=== PATIENT | female | born 1940 | race Hispanic/Latino ===

== ENCOUNTER → 2018-08-23 | Day surgery (SDC) | payer MEDICARE ==
[~2018-08-23] MED LIST: ACETAMINOP325 MG/10 PO; ANUSOL-HC30 GM RC; CILOSTAZOL100 MG PO; FENTANYL CITRATE/PF 100MCG/2 ML INJ ONE; FOLIC ACID1 MG PO; HYDROXYCHLOROQ200 MG PO; LISINOPRIL10 MG PO; METHOTREXATE2.5 MG PO; METOPROLOL SUCC50 MG PO; MIDAZOLAM HCL 2 MG/2 ML VIAL ONE; NEXIUM40 MG PO; OR PHACO EYE KIT ONE; PREOP PHACO EYE KIT ONE; ULTRAM50 MG PO; VIT B12 PO; VIT D2 PO
--- OUTSIDE RECORDS SUMMARY | 2018-08-23 08:39 | XMS REPORT | Continuity of Care Document ---
Author Author [facility] Interface Address Unknown Phone Unavailable Problems Problem Status Onset Date Classification Date Reported Comments Source ABD PAIN Active 07/23/2018 [facility] Encounter for screening mammogram for malignant neoplasm of breast 12/10/2017 03/16/2018 [facility] ROUTINE Active 11/10/2017 [facility] ACUTE CHOLECYSTITIS Active 02/07/2017 [facility] DX: SCREENING FOR BREAST CANCER Active 11/04/2016 [facility] UNK Active 06/11/2016 [facility] MASS OF RIGHT THIGH Active 11/12/2015 [facility] N63 Active 08/31/2015 [facility] Obesity<sup>5</sup> Active 11/09/2014 Problem 11/17/2015 Data migrated from [employer] on 03/27/15. [facility] Obesity<sup>6</sup> Active 11/09/2014 Problem 06/27/2016 Data migrated from [employer] on 03/27/15. [facility] Allergic contact dermatitis<sup>1, 2</sup> Resolved 07/23/2014 Problem 02/13/2017 Data migrated from [employer] on 02/16/15. [facility] Vitamin D deficiency<sup>9</sup> Active 07/06/2014 Problem 02/13/2017 Data migrated from [employer] on 02/16/15. [facility] Vitamin D deficiency<sup>6</sup> Active 07/06/2014 Problem 03/16/2018 Data migrated from [employer] on 02/16/15. [facility] Vitamin D deficiency<sup>10</sup> Active 07/06/2014 Problem 06/27/2016 Data migrated from [employer] on 02/16/15. [facility] OSTEO Active 03/27/2014 [facility] Osteopenia<sup>7</sup> Active 11/01/2013 Problem 02/13/2017 Data migrated from [employer] on 02/16/15. [facility] Osteopenia<sup>4</sup> Active 11/01/2013 Problem 03/16/2018 Data migrated from [employer] on 02/16/15. [facility] Osteopenia<sup>8</sup> Active 11/01/2013 Problem 06/27/2016 Data migrated from [employer] on 02/16/15. [facility] SCREENING MAMMOGRAM Active 10/02/2013 [facility] CKD stage 3, GFR 30-59 ml/min(<span ID="[id number]">Confirmed</span>)<sup>3</sup> Active 06/28/2013 Problem 02/13/2017 Data migrated from [employer] on 02/16/15. [facility] Osteoarthritis of knee<sup>6</sup> Active 06/28/2013 Problem 02/13/2017 Data migrated from [employer] on 02/16/15. [facility] Systemic lupus erythematosus<sup>8</sup> Active 06/28/2013 Problem 02/13/2017 Data migrated from [employer] on 02/16/15. [facility] Chronic kidney disease, stage 3<sup>1</sup> Active 06/28/2013 Problem 03/16/2018 Data migrated from [employer] on 02/16/15. [facility] Osteoarthritis of knee<sup>3</sup> Active 06/28/2013 Problem 03/16/2018 Data migrated from [employer] on 02/16/15. [facility] System[facility] lupus erythematosus<sup>5</sup> Active 06/28/2013 Problem 03/16/2018 Data migrated from [employer] on 02/16/15. [facility] CKD stage 3, GFR 30-59 ml/min<sup>3</sup> Active 06/28/2013 Problem 06/27/2016 Data migrated from [employer] on 02/16/15. [facility] Osteoarthritis of knee<sup>7</sup> Active 06/28/2013 Problem 06/27/2016 Data migrated from [employer] on 02/16/15. [facility] Systemic lupus erythematosus<sup>9</sup> Active 06/28/2013 Problem 06/27/2016 Data migrated from [employer] on 02/16/15. [facility] SCREENING Active 09/26/2012 [facility] RUQ PAIN Active 05/31/2012 [facility] ROUTINE SCREENING Active 10/15/2011 [facility] Dermatitis Active Problem 02/03/2018 [facility] Right hip pain Active Problem 02/03/2018 [facility] Suprapubic pain Active Problem 02/03/2018 [facility] Lumbago Active Problem 02/03/2018 [facility] Heel pain Active Problem 02/03/2018 [facility] Benign hypertension with chronic kidney disease, stage III Active Problem 02/13/2017 [facility] Left breast mass Resolved Problem 03/16/2018 [facility] Screening for breast cancer Active Problem 03/16/2018 [facility] Gastroesophageal reflux disease<sup>4</sup> Active Problem 02/13/2017 Data migrated from [id number] on 02/16/15. [facility] History of lupus Resolved Problem 02/13/2017 [facility] Degenerative joint disease of lumbar spine(<span ID="[id number]">Confirmed</span>) Active Problem 03/16/2018 [facility] Mass of right thigh<sup>5</sup> Resolved Problem 02/13/2017 Ruled out [facility] Osteoporosis Active Problem 03/16/2018 [facility] Screening for glaucoma Active Problem 02/13/2017 [facility] Screening for diabetic retinopathy Active Problem 03/16/2018 [facility] Screening for colon cancer Active Problem 03/16/2018 [facility] Rheumatoid arthritis with positive rheumatoid factor Active Problem 03/16/2018 [facility] Lupus Resolved Problem 02/13/2017 [facility] Type 2 diabetes with stage 3 chronic kidney disease GFR 30-59 Active Problem 02/13/2017 [facility] Type 2 diabetes mellitus with diabetic polyneuropathy Active Problem 02/13/2017 [facility] Acute cholecystitis Resolved Problem 03/16/2018 [facility] Benign hypertension with chronic kidney disease, stage III Active Problem 03/16/2018 [facility] Gastroesophageal reflux disease<sup>2</sup> Active Problem 03/16/2018 Data migrated from [email or web address] on 02/16/15. [facility] Hemorrhoids Active Problem 03/16/2018 [facility] History of cholecystectomy Active Problem 03/16/2018 [facility] Medicare annual wellness visit, subsequent Active Problem 03/16/2018 [facility] Type 2 diabetes mellitus with stage 3 chronic kidney disease Active Problem 03/16/2018 [facility] Encounter for immunization Active Problem 03/16/2018 [facility] Peripheral neuropathy Active Problem 06/27/2016 [facility] Type 2 diabetes mellitus, controlled, with renal complications Active Problem 06/27/2016 [facility] Mass of right thigh Active Problem 11/17/2015 [facility] History of colon polyps Active Problem 06/27/2016 [facility] Hypertension Active Problem 06/27/2016 [facility] SCREEN MAMMOGRAM NEC Active [facility] ABDMNAL PAIN RT UPR QUAD Active [facility] Datatype(DG1.4)- Active [facility] ENCNTR SCREEN MAMMOGRAM FOR MALIGNANT NE Active [facility] DISORDER OF BONE DENSITY AND STRUCTURE, Active [facility] OTH DISRD OF BONE DENSITY AND STRUCTURE, Active [facility] CONTUSION OF RIGHT THIGH, SEQUELA Active [facility] AGE-RELATED OSTEOPOROSIS W/O CURRENT PAT Active [facility] ACUTE CHOLECYSTITIS Active [facility] Medications Medication Details Route Status Patient Instructions Ordering Provider Order Date Source Hydrocortisone 25 MG/ML Topical Cream [Anusol HC] 1 appl, MO, BID, PRN rectal pain/itching, # 30 gm, 1 Refill(s), Pharmacy: [facility] [id number] Active 02/25/2018 [facility] Metoprolol Tartrate 50 mg oral tablet 50 mg=1 tab, PO, BID, # 180 tab, 1 Refill(s), Pharmacy: [facility] [id number] Active 02/25/2018 [facility] lisinopril 10 mg oral tablet 10 mg=1 tab, PO, Daily, # 90 tab, 2 Refill(s), Pharmacy: [facility] [id number] Active 12/30/2017 [facility] Esomeprazole 40 MG Enteric Coated Capsule 40 mg=1 cap, PO, Daily, # 90 cap, 1 Refill(s), [id number] Active 08/19/2017 [facility] Metronidazole 500 MG Oral Tablet [Flagyl] 500 mg=1 tab, PO, Q8H, X 7 day, # 21 tab, 0 Refill(s) Active 02/09/2017 [facility] Levofloxacin 500 MG Oral Tablet [Levaquin] 500 mg=1 tab, PO, Q24H, X 7 day, # 7 tab, 0 Refill(s) Active 02/09/2017 [facility] Acetaminophen 300 MG / Codeine Phosphate 30 MG Oral Tablet [Tylenol with Codeine #3] 1 tab, PO, Q6H, PRN Pain, # 20 tab, 0 Refill(s) Active 02/09/2017 [facility] D5NS + KCL 20mEq/L 1000ml (Premix) 1,000 mL 1,000 mL, Rate: 50 ml/hr, Infuse over: 20 hr, Route: IV, Dosing Weight 88.636 kg, Total Volume: 1,000, Start date: 02/08/17 19:08:00 CDT, Duration: 30 day, Stop date: 03/10/17 19:07:00 CDTNotes: PREMIX IV - Do Not Alter WASTE: F/P - Sink; E - Municipal Trash Bin No Longer Active 02/09/2017 [facility] ondansetron (ANES) Route: IV, Drug form: INJ, ONCE, Stop date: 02/08/17 14:30:00 CDT Inactive 02/08/2017 [facility] neostigmine (ANES) Route: IV, Drug form: INJ, ONCE, Stop date: 02/08/17 14:30:00 CDT Inactive 02/08/2017 [facility] glycopyrrolate (ANES) Route: IV, Drug form: INJ, ONCE, Stop date: 02/08/17 14:30:00 CDT Inactive 02/08/2017 [facility] metoprolol (ANES) Route: IV, Drug form: INJ, ONCE, Stop date: 02/08/17 14:12:00 CDT Inactive 02/08/2017 [facility] famotidine (ANES) Route: IV, Drug form: INJ, ONCE, Stop date: 02/08/17 14:07:00 CDT Inactive 02/08/2017 [facility] rocuronium (ANES) Route: IV, Drug form: INJ, ONCE, Stop date: 02/08/17 14:07:00 CDT Inactive 02/08/2017 [facility] fentaNYL (ANES) Route: IV, Drug form: INJ, ONCE, Stop date: 02/08/17 14:02:00 CDT Inactive 02/08/2017 [facility] propofol (ANES) Route: IV, Drug form: INJ, ONCE, Stop date: 02/08/17 14:02:00 CDT Inactive 02/08/2017 [facility] lidocaine (ANES) Route: IV, Drug form: INJ, ONCE, Stop date: 02/08/17 13:57:00 CDT Inactive 02/08/2017 [facility] LR 1000 mL INJ (ANES) Route: IV, Total Volume: 1,000, Start date: 02/08/17 12:55:00 CDT, Stop date: 02/08/17 13:55:00 CDT Inactive 02/08/2017 [facility] Albuterol 0.833 MG/ML / Ipratropium [place] 0.167 MG/ML Inhalant Solution 3 mL, Route: NEB, Dosing Weight 88.636, kg, ONCE, STAT, Start date: 02/08/17 10:32:00 CDT, Stop date: 02/08/17 10:32:00 CDT Inactive 02/08/2017 [facility] Calcium Chloride 0.0014 MEQ/ML / Potassium Chloride 0.004 MEQ/ML / Sodium Chloride 0.103 MEQ/ML / Sodium Lactate 0.028 MEQ/ML Injectable Solution 1,000 mL, Rate: 25 ml/hr, Infuse over: 40 hr, Route: IV, Dosing Weight 88.636 kg, Total Volume: 1,000, Start date: 02/08/17 10:32:00 CDT, Duration: 30 day, Stop date: 03/10/17 10:31:00 CDT Inactive 02/08/2017 [facility] Streptococcus pneumoniae serotype 1 capsular antigen diphtheria [id number] protein conjugate vaccine / Streptococcus pneumoniae serotype 14 capsular antigen diphtheria [id number] protein conjugate vaccine / Streptococcus pneumoniae serotype 18C capsular antigen d 0.5 mL, Route: IM, Drug Form: INJ, Daily, Start date: 02/08/17 9:00:00 CDT, Stop date: 02/08/17 17:00:00 CDTNotes: Shake well prior to use (Same as: Prevnar 13) Inactive 02/08/2017 [facility] Hydroxychloroquine 400 mg, PO, Daily, 0 Refill(s) Active 02/07/2017 [facility] Zosyn 3.375 gm, Route: IVPB, ABXQ8H, Dosing Weight 88.636, kg, CrCl >=20 ml/min infuse over 4 hours, Start date: 02/07/17 17:00:00 CDT, Duration: 7 day, Stop date: 02/14/17 9:00:00 CDT, ABX Indication: Intra- abdominal InfectionNotes: (Same as: Zosyn) Dosing based on Piperacillin component MEDICATION WASTE Product Size: 3375 mg Product Wasted: ___ mg No Longer Active 02/07/2017 [facility] Lisinopril 10 mg, PO, Daily, 0 Refill(s) Active 02/07/2017 [facility] D5NS + KCL 20mEq/L 1000ml (Premix) 1,000 mL 1,000 mL, Rate: 75 ml/hr, Infuse over: 13.3 hr, Route: IV, Dosing Weight 89.091 kg, Total Volume: 1,000, Start date: 02/07/17 8:57:00 CDT, Duration: 30 day, Stop date: 03/09/17 8:56:00 CDTNotes: PREMIX IV - Do Not Alter WASTE: F/P - Sink; E - Municipal Trash Bin No Longer Active 02/07/2017 [facility] Dilaudid 0.5 mg, 0.5 mL, Route: IVP, Drug form: INJ, Q3H, Dosing Weight 89.091, kg, PRN Pain Score 7-10, Start date: 02/07/17 8:56:00 CDT, Duration: 30 day, Stop date: 03/09/17 8:55:00 CDT No Longer Active 02/07/2017 [facility] Ondansetron 4 mg, 2 mL, Route: IVP, Drug form: INJ, Q6H, Dosing Weight 89.091, kg, PRN Nausea & Vomiting, Start date: 02/07/17 8:56:00 CDT, Duration: 30 day, Stop date: 03/09/17 8:55:00 CDTNotes: (Same as: Zofran) MEDICATION WASTE Product Size: 4 mg Product Wasted: ___ mg No Longer Active 02/07/2017 [facility] Acetaminophen 650 mg, 2 tab, Route: PO, Drug form: TAB, Q6H, Dosing Weight 89.091, kg, PRN Pain 1-3/Temp > 100.4 F, Start date: 02/07/17 8:56:00 CDT, Duration: 30 day, Stop date: 03/09/17 8:55:00 CDTNotes: Do not exceed 4 gm/day. (Same as: Tylenol) No Longer Active 02/07/2017 [facility] Zosyn 3.375 gm, Route: IVPB, ONCE, Dosing Weight 89.091, kg, Priority: STAT, Start date: 02/07/17 7:32:00 CDT, Duration: 1 doses or times, Stop date: 02/07/17 7:32:00 CDT, ABX Indication: Intra-abdominal I nfection Inactive 02/07/2017 [facility] Morphine 4 mg, Route: IVP, ONCE, Dosing Weight 89.091, kg, Priority: STAT, Start date: 02/07/17 6:11:00 CDT, Stop date: 02/07/17 6:11:00 CDT Inactive 02/07/2017 [facility] Sodium Chloride 0.154 MEQ/ML Injectable Solution 1,000 mL, 1,000 ml/hr, Infuse Over: 1 hr, Route: IV, ONCE, Priority: STAT, Dosing Weight 89.091 kg, Start date: 02/07/17 3:28:00 CDT, Duration: 1 doses or times, Stop date: 02/07/17 3:28:00 CDT Inactive 02/07/2017 [facility] Zofran 4 mg, Route: IVP, Drug form: INJ, ONCE, Dosing Weight 89.091, kg, Priority: STAT, Start date: 02/07/17 3:28:00 CDT, Stop date: 02/07/17 3:28:00 CDT Inactive 02/07/2017 [facility] Morphine 4 mg, Route: IVP, ONCE, Dosing Weight 89.091, kg, Priority: STAT, Start date: 02/07/17 3:28:00 CDT, Stop date: 02/07/17 3:28:00 CDT Inactive 02/07/2017 [facility] Albuterol 0.833 MG/ML / Ipratropium [place] 0.167 MG/ML Inhalant Solution 3 mL, NEB, ONCE, 0 Refill(s) Active 06/24/2016 [facility] Albuterol 0.833 MG/ML / Ipratropium [place] 0.167 MG/ML Inhalant Solution 3 mL, Route: NEB, Drug Form: SOLN, Dosing Weight 92.273, kg, ONCE, STAT, Start date: 06/24/16 9:21:00 CDT, Stop date: 06/24/16 9:21:00 CDTNotes: (Same as: Lesoneb) Inactive 06/24/2016 [facility] Sodium Chloride 0.154 MEQ/ML Injectable Solution 500 mL, Rate: 25 ml/hr, Infuse over: 20 hr, Route: IV, Dosing Weight 92.273 kg, Total Volume: 500, Start date: 06/24/16 9:21:00 CDT, Duration: 1 day, Stop date: 06/25/16 9:20:00 CDT Inactive 06/24/2016 [facility] Aspirin 81 MG Enteric Coated Tablet 81 mg=1 tab, PO, Daily, # 90 tab, 3 Refill(s) No Longer Active 06/22/2016 [facility] Vitamin B12 =1 mL, PO, Daily, 0 Refill(s) Active 06/22/2016 [facility] Alendronic acid 70 MG Oral Tablet 2 tabs, PO, 0 Refill(s) Active 06/22/2016 [facility] Esomeprazole 40 MG Enteric Coated Capsule [Nexium] 40 mg=1 cap, PO, Daily, # 30 cap, 0 Refill(s) Active 06/22/2016 [facility] Hydroxychloroquine Sulfate 200 MG Oral Tablet 400 mg=2 tab, PO, Daily, # 60 tab, 0 Refill(s) Active 06/22/2016 [facility] leflunomide 10 mg oral tablet 10 mg=1 tab, PO, Daily, # 30 tab, 0 Refill(s) Active 06/22/2016 [facility] Allergies, Adverse Reactions, Alerts Substance Category Reaction Severity Reaction type Status Date Reported Comments Source Immunizations Immunization Date Given Site Status Last Updated Comments Source influenza virus vaccine, inactivated<sup>1</sup> 06/24/2017 Left Deltoid completed [facility] Result Comment: Patient waited 15 min with no reaction. [facility] pneumococcal 13-valent vaccine 02/08/2017 Right deltoid completed [facility] influenza virus vaccine, inactivated 07/24/2016 Left Deltoid completed [facility] influenza virus vaccine, inactivated 07/01/2015 Left deltoid completed [facility] Hx influenza vaccine-unspecified<sup>1</sup> 07/06/2014 completed [facility] Result Comment: done high dose. Migrated from OBS ; Data migrated from [employer] on 10/22/2015. [facility] Hx influenza vaccine-unspecified<sup>4</sup> 07/06/2014 completed [facility] Result Comment: done high dose. Migrated from OBS ; Data migrated from [employer] on 10/22/2015. [facility] influenza virus vaccine, inactivated<sup>2</sup> 07/06/2014 Right Deltoid completed [facility] Result Comment: fluzone high dose [[id number]]. Migrated from OBS ; Data migrated from [employer] on 10/22/2015. [facility] influenza virus vaccine, inactivated<sup>3</sup> 06/28/2013 Left Deltoid completed [facility] Result Comment: fluzone (>3 yrs.) [[id number]]. Migrated from OBS ; Data migrated from [employer] on 10/22/2015. [facility] pneumococcal 23-valent vaccine<sup>4</sup> 07/16/2008 completed [facility] Result Comment: pneumovax. Migrated from OBS ; Data migrated from [employer] on 10/22/2015. [facility] pneumococcal 23-valent vaccine<sup>5</sup> 07/16/2008 completed GE Result Comment: pneumovax. Migrated from OBS ; Data migrated from [employer] on 10/22/2015. [facility] Results Order Name Results Value Reference Range Date Interpretation Comments Source Hip 2/3 views uni w pelvis DX Hip 2/3 views uni w pelvis DX Patient Name: YULIYA POLLOCK : 1940; Age: 78 years Female MR: [id number] Study: Hip 2/3 views uni w pelvis DX 07/23/2018 8:27 PM CDT Clinical Indication: - right hip pain, bilateral pelvic pain. COMPARISON: 11/14/2015 FINDINGS: Views and laterality: 3 views. Right hip. No acute fracture or dislocation. Mild degenerative changes of the right hip. Contrast is present within the bladder from recent exam. This obscures fine bony detail. No acute fracture evident. No dislocation. If there is further concern, recommend follow-up radiographs or MRI for complete assessment. IMPRESSION: No acute fracture or dislocation demonstrated. SL: KIMBERLY 07/23/2018 - - Read by: Neftali Faust MD Dictated Date/time: 07/23/18 21:29 Electronically Signed by: Neftali Faust MD 07/23/18 21:32 FINAL REPORT [facility] ED Abdomen/Pelvis IV contrast only CT ED Abdomen/Pelvis IV contrast only CT Clinical Indication: Abdominal pain, acute - right abdominal pain; urinary incontinence. Comparison: Prior CT study dated 02/07/2017. Technique: Multi-detector CT imaging of the abdomen and pelvis is performed with contrast. Coronal and sagittal reconstructions were obtained. IV CONTRAST: 100 mL of Omnipaque GI CONTRAST: No oral contrast was administered which can limit assessment. CT imaging performed at this location utilizes radiation dose optimization techniques which include one or more of the following: -Automated exposure control -Adjustment of the mA and/or kV according to patient size -Use of iterative reconstruction technique CT Radiation Dose DLP 1128.96 mGy-cm FINDINGS: CT ABDOMEN WITH CONTRAST: LUNG BASES: Unremarkable. ABDOMINAL SOLID ORGANS: The contrast enhanced images of the liver, spleen, pancreas, adrenals and kidneys are normal. Gallbladder is surgically absent. STOMACH AND BOWEL: Lack of oral contrast limits assessment. Stomach is decompressed. Nonopacified small bowel loops are unremarkable. The appendix is normal. Few colonic diverticula without associated inflammatory changes. PERITONEUM AND RETROPERITONEUM: There is no abdominal lymphadenopathy. There is no pneumoperitoneum or abdominal ascites. There are no retroperitoneal abnormalities. VASCULAR STRUCTURES: There is atherosclerotic calcification of the abdominal aorta. No aneurysm. Takeoffs of the mesenteric arteries and renal arteries are patent. The inferior vena cava and portal venous structures are grossly patent. OSSEOUS STRUCTURES: Multilevel degenerative changes in the thoracolumbar spine. No acute osseous abnormality. ------- CT PELVIS WITH CONTRAST: BOWEL: Rectosigmoid colon is unremarkable. PERITONEAL AND EXTRAPERITONEAL REGIONS: There is no pelvic free fluid or lymphadenopathy. The inguinal regions are unremarkable. BLADDER / : The bladder is unremarkable. Uterus is normal in size. No adnexal mass. OSSEOUS STRUCTURES: There are no significant osseous abnormalities seen. ----- IMPRESSION: 1. No evidence of acute abnormality within the abdomen or pelvis. 2. Uncomplicated colonic diverticulosis. 07/23/2018 - - Read by: Dash Almanza MD Dictated Date/time: 07/23/18 19:30 Electronically Signed by: Dash Almanza MD 07/23/18 19:39 FINAL REPORT [facility] Breast Mammo Scrn ALEXY incl CAD MA Breast Mammo Scrn ALEXY incl CAD MA BILATERAL DIGITAL SCREENING MAMMOGRAM WITH CAD: 12/08/2017 CLINICAL: /Routine. Current study was evaluated with a Computer Aided Detection (CAD) system. COMPARISON:Comparison is made to exams dated: 12/08/2016 mammogram, 09/25/2015 mammogram, 11/07/2013 mammogram, 11/01/2012 mammogram, 10/29/2010 mammogram, and 10/30/2011 mammogram - [facility]. TECHNIQUE: Mammographic views were obtained using digital acquisition. [employer] Version 1.3 was utilized for computer aided detection. FINDINGS: The tissue of both breasts is almost entirely fat. There is a benign density in the right breast. There also is a benign calcification in the left breast. Additionally, there are benign vascular calcifications in both breasts. No significant masses, calcifications, or other findings are seen in either breast. There has been no significant interval change. IMPRESSION: BENIGN RECOMMENDATION:There is no mammographic evidence of malignancy. A 1 year screening mammogram is recommended.(12/09/2018) This exam was interpreted at [id number] for [facility]. Stephie Gutierrez M.D. jt/penrad:12/09/2017 07:58:52 Executive Housekeeper(s): Anila Rousseau [facility] letter sent: BI-RADS 1/2 Mammogram BI-RADS: 2 Benign 12/08/2017 - - Read by: Stephie Gutierrez MD Dictated Date/time: 12/09/17 07:58 Electronically Signed by: Stephie Gutierrez MD 12/09/17 07:58 FINAL REPORT [facility] CHEM PANEL Bili Direct 0.1 mg/dL 0.0 - 0.3 02/10/2017 [facility] CHEM PANEL Bili Total 0.5 mg/dL 0.2 - 1.3 02/10/2017 [facility] CHEM PANEL AST 31 unit/L 0 - 37 02/10/2017 [facility] CHEM PANEL Alk Phos 62 unit/L 39 - 136 02/10/2017 [facility] CHEM PANEL Albumin Lvl 2.4 g/dL 3.5 - 5.0 02/10/2017 [facility] CHEM PANEL ALT 37 unit/L 0 - 65 02/10/2017 [facility] CHEM PANEL Total Protein 5.1 g/dL 6.4 - 8.4 02/10/2017 [facility] CHEM PANEL Globulin 2.7 g/dL 2.7 - 4.2 02/10/2017 [facility] CHEM PANEL A/G Ratio 0.9 0.7 - 1.6 02/10/2017 [facility] CHEM PANEL Bili Indirect 0.4 mg/dL 0.0 - 1.0 02/10/2017 [facility] Eosinophils # 0.2 K/CMM 0.0 - 0.5 02/10/2017 [facility] HEMATOLOGY Segs 68.2 % 45.0 - 75.0 02/10/2017 [facility] HEMATOLOGY Monocytes 8.5 % 2.0 - 12.0 02/10/2017 [facility] HEMATOLOGY Lymphocytes 20.4 % 20.0 - 40.0 02/10/2017 [facility] HEMATOLOGY Eosinophils 2.3 % 0.0 - 4.0 02/10/2017 [facility] HEMATOLOGY Basophils 0.6 % 0.0 - 1.0 02/10/2017 [facility] HEMATOLOGY Segs-Bands # 4.6 K/CMM 1.5 - 8.1 02/10/2017 [facility] Monocytes # 0.6 K/CMM 0.0 - 0.8 02/10/2017 [facility] [facility] Lymphocytes # 1.4 K/CMM 1.0 - 5.5 02/10/2017 [facility] RBC 3.24 M/CMM 4.20 - 5.40 02/10/2017 [facility] MCV 95.6 fL 80.0 - 98.0 02/10/2017 [facility] Hct 30.9 % 36.0 - 48.0 02/10/2017 [facility] MCH 32.2 pg 27.0 - 31.0 02/10/2017 [facility] MCHC 33.6 g/dL 32.0 - 36.0 02/10/2017 [facility] RDW 14.7 % 11.5 - 14.5 02/10/2017 [facility] Platelet 170 K/CMM 133 - 450 02/10/2017 [facility] MPV 8.0 fL 7.4 - 10.4 02/10/2017 [facility] WBC 6.7 K/CMM 3.7 - 10.4 02/10/2017 [facility] Hgb 10.4 g/dL 12.0 - 16.0 02/10/2017 [facility] CHEM PANEL eGFR 71 mL/min/1.73m2 02/09/2017 Result Comment: The eGFR is calculated using the CKD-EPI formula. In most young, healthy individuals the eGFR will be >90 mL/min/1.73m2. The eGFR declines with age. An eGFR of 60-89 may be normal in some populations, particularly the elderly, for whom the CKD-EPI formula has not been extensively validated. Use of the eGFR is not recommended in the following populations: Individuals with unstable creatinine concentrations, including patients and those with serious co-morbid conditions. Patients with extremes in muscle mass or diet. The data above are obtained from the National Kidney Disease Education Program (NKDEP) which additionally recommends that when the eGFR is used in patients with extremes of body mass index for purposes of drug dosing, the eGFR should be multiplied by the estimated BMI. [facility] CHEM PANEL BUN 10 mg/dL 7 - 22 02/09/2017 [facility] CHEM PANEL Glucose Lvl 107 mg/dL 70 - 99 02/09/2017 [facility] CHEM PANEL Creatinine Lvl 0.81 mg/dL 0.50 - 1.40 02/09/2017 [facility] CHEM PANEL Potassium Lvl 4.2 meq/L 3.5 - 5.1 02/09/2017 [facility] CHEM PANEL Sodium Lvl 142 meq/L 135 - 145 02/09/2017 [facility] CHEM PANEL Chloride Lvl 111 meq/L 95 - 109 02/09/2017 [facility] CHEM PANEL CO2 23 meq/L 24 - 32 02/09/2017 [facility] CHEM PANEL Calcium Lvl 8.0 mg/dL 8.5 - 10.5 02/09/2017 [facility] CHEM PANEL AGAP 12.2 meq/L 10.0 - 20.0 02/09/2017 [facility] HEMATOLOGY MPV 8.9 fL 7.4 - 10.4 02/09/2017 [facility] HEMATOLOGY MCV 96.0 fL 80.0 - 98.0 02/09/2017 [facility] HEMATOLOGY MCHC 33.7 g/dL 32.0 - 36.0 02/09/2017 [facility] HEMATOLOGY Hct 32.6 % 36.0 - 48.0 02/09/2017 [facility] MCH 32.3 pg 27.0 - 31.0 02/09/2017 [facility] RDW 14.9 % 11.5 - 14.5 02/09/2017 [facility] HEMATOLOGY Platelet 187 K/CMM 133 - 450 02/09/2017 [facility] HEMATOLOGY WBC 8.3 K/CMM 3.7 - 10.4 02/09/2017 [facility] HEMATOLOGY Hgb 11.0 g/dL 12.0 - 16.0 02/09/2017 [facility] HEMATOLOGY RBC 3.40 M/CMM 4.20 - 5.40 02/09/2017 [facility] CARDIAC ENZYMES Troponin-I null 0.00 - 0.40 02/08/2017 [facility] CHEM PANEL eGFR 73 mL/min/1.73m2 02/08/2017 Result Comment: The eGFR is calculated using the CKD-EPI formula. In most young, healthy individuals the eGFR will be >90 mL/min/1.73m2. The eGFR declines with age. An eGFR of 60-89 may be normal in some populations, particularly the elderly, for whom the CKD-EPI formula has not been extensively validated. Use of the eGFR is not recommended in the following populations: Individuals with unstable creatinine concentrations, including patients and those with serious co-morbid conditions. Patients with extremes in muscle mass or diet. The data above are obtained from the National Kidney Disease Education Program (NKDEP) which additionally recommends that when the eGFR is used in patients with extremes of body mass index for purposes of drug dosing, the eGFR should be multiplied by the estimated BMI. [facility] CHEM PANEL Bili Total 0.4 mg/dL 0.2 - 1.3 02/08/2017 [facility] CHEM PANEL AST 31 unit/L 0 - 37 02/08/2017 [facility] CHEM PANEL Alk Phos 61 unit/L 39 - 136 02/08/2017 [facility] CHEM PANEL Chloride Lvl 112 meq/L 95 - 109 02/08/2017 [facility] CHEM PANEL Total Protein 5.6 g/dL 6.4 - 8.4 02/08/2017 [facility] CHEM PANEL Calcium Lvl 7.6 mg/dL 8.5 - 10.5 02/08/2017 [facility] CHEM PANEL CO2 22 meq/L 24 - 32 02/08/2017 [facility] CHEM PANEL ALT 32 unit/L 0 - 65 02/08/2017 [facility] CHEM PANEL Albumin Lvl 2.5 g/dL 3.5 - 5.0 02/08/2017 [facility] CHEM PANEL BUN 14 mg/dL 7 - 22 02/08/2017 [facility] CHEM PANEL Potassium Lvl 4.1 meq/L 3.5 - 5.1 02/08/2017 [facility] CHEM PANEL Creatinine Lvl 0.79 mg/dL 0.50 - 1.40 02/08/2017 [facility] CHEM PANEL Sodium Lvl 142 meq/L 135 - 145 02/08/2017 [facility] CHEM PANEL Glucose Lvl 115 mg/dL 70 - 99 02/08/2017 [facility] CHEM PANEL A/G Ratio 0.8 0.7 - 1.6 02/08/2017 [facility] CHEM PANEL Globulin 3.1 g/dL 2.7 - 4.2 02/08/2017 [facility] CHEM PANEL AGAP 12.1 meq/L 10.0 - 20.0 02/08/2017 [facility] CHEM PANEL B/C Ratio 18 6 - 25 02/08/2017 [facility] CHEM PANEL Magnesium Lvl 1.9 mg/dL 1.8 - 2.4 02/08/2017 [facility] HEMATOLOGY Segs-Bands # 4.3 K/CMM 1.5 - 8.1 02/08/2017 [facility] HEMATOLOGY Lymphocytes # 1.2 K/CMM 1.0 - 5.5 02/08/2017 [facility] HEMATOLOGY Basophils 0.7 % 0.0 - 1.0 02/08/2017 [facility] HEMATOLOGY Eosinophils # 0.2 K/CMM 0.0 - 0.5 02/08/2017 [facility] HEMATOLOGY Monocytes # 0.5 K/CMM 0.0 - 0.8 02/08/2017 [facility] HEMATOLOGY Eosinophils 2.7 % 0.0 - 4.0 02/08/2017 [facility] HEMATOLOGY Segs 69.3 % 45.0 - 75.0 02/08/2017 [facility] HEMATOLOGY Monocytes 8.2 % 2.0 - 12.0 02/08/2017 [facility] HEMATOLOGY Lymphocytes 19.1 % 20.0 - 40.0 02/08/2017 [facility] HEMATOLOGY MCV 95.4 fL 80.0 - 98.0 02/08/2017 [facility] HEMATOLOGY MCH 32.6 pg 27.0 - 31.0 02/08/2017 [facility] HEMATOLOGY Hct 32.1 % 36.0 - 48.0 02/08/2017 [facility] MCHC 34.1 g/dL 32.0 - 36.0 02/08/2017 [facility] HEMATOLOGY RDW 14.8 % 11.5 - 14.5 02/08/2017 [facility] HEMATOLOGY Platelet 189 K/CMM 133 - 450 02/08/2017 [facility] HEMATOLOGY RBC 3.37 M/CMM 4.20 - 5.40 02/08/2017 [facility] HEMATOLOGY Hgb 11.0 g/dL 12.0 - 16.0 02/08/2017 [facility] HEMATOLOGY MPV 8.0 fL 7.4 - 10.4 02/08/2017 [facility] WBC 6.2 K/CMM 3.7 - 10.4 02/08/2017 [facility] CARDIAC ENZYMES Troponin-I null 0.00 - 0.40 02/08/2017 [facility] CARDIAC ENZYMES Troponin-I null 0.00 - 0.40 02/07/2017 [facility] CHEM PANEL Lactic Acid Lvl 1.7 mMol/L 0.5 - 2.2 02/07/2017 [facility] CHEM PANEL Lipase Lvl 209 unit/L 73 - 393 02/07/2017 [facility] CHEM PANEL eGFR 55 mL/min/1.73m2 02/07/2017 Result Comment: The eGFR is calculated using the CKD-EPI formula. In most young, healthy individuals the eGFR will be >90 mL/min/1.73m2. The eGFR declines with age. An eGFR of 60-89 may be normal in some populations, particularly the elderly, for whom the CKD-EPI formula has not been extensively validated. Use of the eGFR is not recommended in the following populations: Individuals with unstable creatinine concentrations, including patients and those with serious co-morbid conditions. Patients with extremes in muscle mass or diet. The data above are obtained from the National Kidney Disease Education Program (NKDEP) which additionally recommends that when the eGFR is used in patients with extremes of body mass index for purposes of drug dosing, the eGFR should be multiplied by the estimated BMI. [facility] CHEM PANEL AST 20 unit/L 0 - 37 02/07/2017 [facility] CHEM PANEL CO2 22 meq/L 24 - 32 02/07/2017 [facility] CHEM PANEL Alk Phos 72 unit/L 39 - 136 02/07/2017 [facility] CHEM PANEL Bili Total 0.3 mg/dL 0.2 - 1.3 02/07/2017 [facility] CHEM PANEL ALT 21 unit/L 0 - 65 02/07/2017 [facility] CHEM PANEL Calcium Lvl 8.9 mg/dL 8.5 - 10.5 02/07/2017 [facility] CHEM PANEL Albumin Lvl 3.3 g/dL 3.5 - 5.0 02/07/2017 [facility] CHEM PANEL Total Protein 6.9 g/dL 6.4 - 8.4 02/07/2017 [facility] CHEM PANEL Creatinine Lvl 1.00 mg/dL 0.50 - 1.40 02/07/2017 [facility] CHEM PANEL Sodium Lvl 139 meq/L 135 - 145 02/07/2017 [facility] CHEM PANEL Potassium Lvl 3.5 meq/L 3.5 - 5.1 02/07/2017 [facility] CHEM PANEL Chloride Lvl 107 meq/L 95 - 109 02/07/2017 [facility] CHEM PANEL BUN 30 mg/dL 7 - 22 02/07/2017 [facility] CHEM PANEL Glucose Lvl 108 mg/dL 70 - 99 02/07/2017 [facility] CHEM PANEL AGAP 13.5 meq/L 10.0 - 20.0 02/07/2017 [facility] CHEM PANEL B/C Ratio 30 6 - 25 02/07/2017 [facility] CHEM PANEL Globulin 3.6 g/dL 2.7 - 4.2 02/07/2017 [facility] CHEM PANEL A/G Ratio 0.9 0.7 - 1.6 02/07/2017 [facility] HEMATOLOGY Monocytes # 1.0 K/CMM 0.0 - 0.8 02/07/2017 [facility] HEMATOLOGY Lymphocytes # 3.6 K/CMM 1.0 - 5.5 02/07/2017 [facility] HEMATOLOGY Basophils # 0.1 K/CMM 0.0 - 0.2 02/07/2017 [facility] HEMATOLOGY Eosinophils # 0.2 K/CMM 0.0 - 0.5 02/07/2017 [facility] HEMATOLOGY Basophils 0.9 % 0.0 - 1.0 02/07/2017 [facility] HEMATOLOGY Lymphocytes 31.2 % 20.0 - 40.0 02/07/2017 [facility] HEMATOLOGY Segs 58.0 % 45.0 - 75.0 02/07/2017 [facility] HEMATOLOGY Eosinophils 1.5 % 0.0 - 4.0 02/07/2017 [facility] HEMATOLOGY Monocytes 8.4 % 2.0 - 12.0 02/07/2017 [facility] HEMATOLOGY Segs-Bands # 6.7 K/CMM 1.5 - 8.1 02/07/2017 [facility] Renal Stone CT Renal Stone CT Clinical Indication: CT DLP: 1134.91 MGY-CM - RLQ pain/Reports RLQ and flank pain that started approx 20 min [employer]. Pt denies N/V/D, fever or chills. PMH HTN, Lupus, GERD. Comparison: CT of the abdomen and pelvis performed 09/18/2010 TECHNIQUE: Noncontrasted helical imaging was performed from the kidneys through the symphysis as a renal stone protocol. Multiplanar reformations are available. IV CONTRAST: No IV contrast was administered. GI CONTRAST: No oral contrast was administered. DLP: 1134.91 mGy-cm FINDINGS: LOWER CHEST: There is dependent atelectasis at the lung bases. LIVER: There are no gross masses or intrahepatic biliary ductal dilatation noted. Again seen is a small calcified granuloma within the right lobe of the liver. BILIARY TREE: There is no significant biliary ductal dilatation. GALLBLADDER: The gallbladder is present. PANCREAS: The pancreas is unremarkable. The pancreatic duct is normal in caliber. SPLEEN: The spleen is normal in size and there are no parenchymal abnormalities. ADRENALS: The right adrenal gland is unremarkable. The left adrenal gland is unremarkable. KIDNEYS: There is no evidence of renal or ureteral calculi. There is no evidence of hydronephrosis. The renal contours are unremarkable. BOWEL: There is no evidence of bowel obstruction. A moderate amount of fecal material is noted throughout the colon. There is colonic diverticulosis without evidence of diverticulitis. APPENDIX: The appendix is unremarkable. PELVIS: There are no pelvic mass. The urinary bladder is normal. PERITONEUM: There is no evidence for free intraperitoneal fluid or air. LYMPH NODES: There is no evidence of mesenteric, retroperitoneal, or inguinal lymphadenopathy. VASCULATURE: There are mild atherosclerotic calcifications of the nonaneurysmal thoracic aorta and branching vessels. MUSCULOSKELETAL: There are degenerative changes within the visualized spine. IMPRESSION: 1. No evidence of obstructive uropathy. 2. Colonic diverticulosis without evidence of diverticulitis. SL: KPATEL-M 02/07/2017 - - Read by: Ovidio Cross MD Dictated Date/time: 02/07/17 06:27 Electronically Signed by: Ovidio Cross MD 02/07/17 06:32 FINAL REPORT [facility] Abdomen RUQ US Abdomen RUQ US RIGHT UPPER QUADRANT ULTRASOUND: HISTORY: Acute right upper quadrant pain. FINDINGS: The gallbladder is distended without significant wall thickening. There is a 1.6 cm calculus in the gallbladder neck. There is no pericholecystic fluid. There is no evidence of biliary dilatation. The common duct measures 4 mm in diameter. The liver is normal in size, with a right lobe sagittal span of approximately 13 cm. There is normal echogenicity of the liver parenchyma without focal abnormalities or surface nodularity. Hepatopedal flow in the main portal vein is demonstrated. The pancreas is not visualized due to gas. The right kidney and inferior vena cava are unremarkable. IMPRESSION: 1. Cholelithiasis with gallbladder distention. There is no evidence of biliary dilatation. 2. Nonvisualized pancreas. 3. No other significant ultrasound abnormalities of the right upper quadrant. DLAWRENVERN- 02/07/2017 - - Read by: Roderick Caldwell MD Dictated Date/time: 02/07/17 04:41 Electronically Signed by: Roderick Caldwell MD 02/07/17 04:42 FINAL REPORT [facility] Chest 1view DX Chest 1view DX Clinical Indication: - sob Comparison: 01/23/2010 FINDINGS: HEART: Borderline heart size. PULMONARY VASCULATURE: Mild pulmonary vasculature congestion versus perihilar nonspecific airspace opacity. LUNGS: Lung volumes are maintained. There are no pneumothoraces noted. Costophrenic sulci: -Right costophrenic sulcus: The right costophrenic sulcus is sharp without evidence for pleural effusions or thickening. -Left costophrenic sulcus: The left costophrenic sulcus is sharp without evidence for pleural effusions or thickening. BONES: The visualized osseous structures are unremarkable. IMPRESSION: 1. Borderline heart size with mild pulmonary vascular congestion versus nonspecific airspace infiltrate. : YURIY- 02/07/2017 - - Read by: Ricardo Donohue DO Dictated Date/time: 02/07/17 04:20 Electronically Signed by: Ricardo Donohue DO 02/07/17 04:21 FINAL REPORT [facility] Breast Mammo Scrn ALEXY incl CAD MA Breast Mammo Scrn ALEXY incl CAD MA - BREAST MAMMO SCRN ALEXY INCL CAD MA BILATERAL DIGITAL SCREENING MAMMOGRAM WITH CAD: 12/08/2016 CLINICAL: Routine. Current study was evaluated with a Computer Aided Detection (CAD) system. Comparison is made to exams dated: 09/25/2015 mammogram, 11/07/2013 mammogram, 11/01/2012 mammogram, 10/30/2011 mammogram, 10/29/2010 mammogram and 10/29/2009 mammogram - [facility]. The tissue of both breasts is almost entirely fat. There are benign vascular calcifications in both breasts. There also is a benign density in the right breast. Additionally there is a benign calcification in the left breast. No significant masses, calcifications, or other findings are seen in either breast. There has been no significant interval change. IMPRESSION: BENIGN There is no mammographic evidence of malignancy. A 1 year screening mammogram is recommended. Stephie marst/penrad:12/09/2016 08:09:42 Executive Housekeeper: Pura Patel, [facility] This exam was dictated and interpreted by [id number] for [facility] Breast [place]. letter sent: Normal exam Mammogram BI-RADS: 2 Benign 12/08/2016 - - Read by: Stephie Gutierrez MD Dictated Date/time: 12/09/16 08:09 Electronically Signed by: Stephie Gutierrez MD 12/09/16 08:09 FINAL REPORT [facility] Bone Density Scan Bone Density Scan Patient Name: YULIYA POLLOCK : 1940; Age: 76 years y/o Female MR: [id number] Study: Bone Density Scan 12/08/2016 3:14 PM CDT Ordering Physician: Aaron Merlos MD Clinical Indication: M81.0 Age-related osteoporosis without current pathological fracture. Comparison: Bone density scan 07/09/2015 FINDINGS: The axial lumbar bone mineral density is 115% of the expected age matched bone mass with a T-score -1.4. Axial lumbar average BMD is 0.897 g/cm2. The left femoral neck bone mineral density is 123% of the expected age matched bone mass with a T-score of -0.9. Left femoral neck BMD is 0.772 g/cm2. The total femoral BMD is 0.959 g/cm2. IMPRESSION: 1. Osteopenia of the lumbar spine. There has been an 11.4% increase in lumbar spine bone mineral density since 07/09/2015. 2. Normal bone mineral density of the left femoral neck. There has been a 2.9% increase in bone mineral density of the left femoral neck since 07/09/2015. The World Health Organization has established that OSTEOPOROSIS occurs at -2.5 or more standard deviations (SD) below peak bone mass. OSTEOPENIA (low bone mass) occurs at -1.0 standard deviations to -2.5 standard deviations below peak bone mass. SL: [id number] 12/08/2016 - - Read by: Roderick Piper MD Dictated Date/time: 12/08/16 15:28 Electronically Signed by: Roderick Piper MD 12/08/16 15:29 FINAL REPORT [facility] Ext Lower non vascular US Ext Lower non vascular US Study: Right lower extremity soft tissue ultrasound Clinical Indication: mass on right thigh Comparison: None FINDINGS: Multiple sonographic images of the right lower extremity were acquired with special attention to the right groin soft tissues. No extracapsular mass or cystic fluid collection is seen. Nonpathologic right inguinal lymph node is seen measuring 9 mm in greatest dimension. IMPRESSION: No mass or organized fluid collection in the right groin soft tissues. SL: [id number] 11/14/2015 - - Read by: Emmanuel Hernández MD Dictated Date/time: 11/15/15 08:39 Electronically Signed by: Emmanuel Hernández MD 11/15/15 08:40 FINAL REPORT [facility] Hip 2/3 views uni DX Hip 2/3 views uni DX Study: Right hip, 2 views Clinical Indication: m25.551 pain in right hip Comparison: None FINDINGS: 2 views of the right hip show no acute bony fracture, joint dislocation, or suspicious osseous lesion. Calcified phleboliths in the pelvis are seen. IMPRESSION: No significant abnormality of the right hip. SL: [id number] 11/14/2015 - - Read by: Emmanuel Hernández MD Dictated Date/time: 11/14/15 13:21 Electronically Signed by: Emmanuel Hernández MD 11/14/15 13:21 FINAL REPORT [facility] Spine lumbar series DX Spine lumbar series DX Study: Lumbar spine, 5 views Clinical Indication: Back pain Comparison: None FINDINGS: Multiple views of the lumbar spine show 5 nonrib-bearing lumbar vertebra. No acute compression fracture or subluxation is seen. Bones are demineralized. Scattered mild marginal osteophytes throughout the lumbar spine are seen. Mild to moderate disc height loss in the lower lumbar spine at L4-L5 and L5-S1 is seen with vacuum disc phenomena, compatible with mild to moderate degenerative disc disease. Moderate-severe facet arthrosis of the lower lumbar spine is seen. No pars interarticularis defects are noted. IMPRESSION: Degenerative disc disease and advanced facet arthrosis of the lower lumbar spine. SL: [id number] 11/14/2015 - - Read by: Emmanuel Hernández MD Dictated Date/time: 11/14/15 13:20 Electronically Signed by: Emmanuel Hernández MD 11/14/15 13:20 FINAL REPORT [facility] Breast Complete Uni US Breast Complete Uni US - BREAST COMPLETE UNI US/L ULTRASOUND OF LEFT BREAST AND LEFT AXILLA: 09/25/2015 CLINICAL: Pain. Comparison is made to exams dated: 09/25/2015 mammogram, 11/07/2013 mammogram, 11/01/2012 mammogram, 10/30/2011 mammogram, 10/29/2010 mammogram and 10/29/2009 mammogram - [facility]. Color flow and real-time ultrasound of the left breast and axilla were performed. Alberto scale images of the real-time examination were reviewed. All 4 quadrants, the retroareolar region and axilla are evaluated in this exam. There is a small benign cyst left breast at 12 o'clock that is an incidental finding. No abnormalities were seen sonographically in the left axilla. IMPRESSION: BENIGN There is no sonographic evidence of malignancy. There is no mammographic or sonographic abnormality seen in the left breast to correspond with the pain. A 1 year screening mammogram is recommended. The results were reviewed with the patient. Stephie valdez/:09/25/2015 11:47:32 Executive Housekeeper: Liz Zhang, [facility] This exam was dictated and interpreted by [id number] for [facility]. letter sent: Normal exam Ultrasound BI-RADS: 2 Benign 09/25/2015 - - Read by: Stephie Gutierrez MD Dictated Date/time: 09/25/15 11:47 Electronically Signed by: Stephie Gutierrez MD 09/25/15 11:47 FINAL REPORT [facility] Digital Mammo DX Alexy MA w sarahy Digital Mammo DX Alexy MA w sarahy - DIGITAL MAMMO DX ALEXY MA W SARAHY BILATERAL DIGITAL DIAGNOSTIC MAMMOGRAM 3D/2D WITH CAD: 09/25/2015 CLINICAL: Left Breast Pain. 2D digital mammographic images and 3D digital tomosynthesis images were obtained in the CC and MLO projections. Current study was evaluated with a Computer Aided Detection (CAD) system. Comparison is made to exams dated: 11/07/2013 mammogram, 11/01/2012 mammogram, 10/30/2011 mammogram, 10/29/2010 mammogram, 10/29/2009 mammogram - [facility] and 08/06/2008 mammogram. The tissue of both breasts is almost entirely fat. There are benign vascular calcifications in both breasts. There also is a benign density in the right breast. No significant masses, calcifications, or other findings are seen in either breast. There has been no significant interval change. IMPRESSION: INCOMPLETE: NEEDS ADDITIONAL IMAGING EVALUATION There is no mammographic abnormality seen in the left breast to correspond with the pain, however ultrasound is recommended. SUMMARY: Ultrasound will be performed at this time; please see dedicated separate report. Stephie valdez/rober:09/25/2015 11:45:44 Executive Housekeeper: Petra Chatterjee, [facility] This exam was dictated and interpreted by [id number] for [facility]. Mammogram BI-RADS: 0 Indeterminate 09/25/2015 - - Read by: Stephie Gutierrez MD Dictated Date/time: 09/25/15 11:45 Electronically Signed by: Stephie Gutierrez MD 09/25/15 11:45 FINAL REPORT [facility] Bone Density Scan Bone Density Scan PROCEDURE: Bone Density Scan REASON FOR EXAM: See Clinic Indication CLINICAL INFORMATION osteopenia COMPARISON: 03/30/2014 FINDINGS: The lumbar spine bone mineral density is 0.805. This is 77% of the expected normal value, T-score is -2.2. This is decreased 4.5% from the prior exam. The left hip bone mineral density is 1.037. This is 108% of the expected normal value, T-score is 0.6. This is decreased 2.5% from the prior exam. The femoral neck bone mineral density is 0.751. IMPRESSION: 1. Osteopenia of the lumbar spine. 2. Normal bone mineral density of the left hip. SL: 16 07/09/2015 - - Read by: Emmanuel Hernández MD Dictated Date/time: 07/09/15 13:21 Electronically Signed by: Emmanuel Hernández MD 07/09/15 13:22 FINAL REPORT [facility] Bone Density Scan Bone Density Scan PROCEDURE: Bone Density Scan REASON FOR EXAM: See Clinic Indication CLINICAL INFORMATION 733.90 Disorder of Bone and Cartilage, Unspecified COMPARISON: None. FINDINGS: The lumbar spine bone mineral density is 0.843. This is 81% of the expected normal value, 1.9 standard deviations below normal. The left hip bone mineral density is 1.064. This is 111% of the expected normal value, 0.8 standard deviations above normal. The femoral neck bone mineral density is 0.763. IMPRESSION: 1. Osteopenia of the lumbar spine. 2. Normal bone mineral density of the left hip. SL: 13 03/30/2014 - - Read by: Emmanuel Hernández MD Dictated Date/time: 03/30/14 10:54 Electronically Signed by: Emmanuel Hernández MD 03/30/14 10:55 FINAL REPORT [facility] Digital Mammo Screening Alexy MA Digital Mammo Screening Alexy MA - DIGITAL MAMMO SCREENING ALEXY MA BILATERAL DIGITAL SCREENING MAMMOGRAM WITH CAD: 11/07/2013 CLINICAL: Other Screening Mammogram. Current study was evaluated with a Computer Aided Detection (CAD) system. Comparison is made to exams dated: 11/01/2012 mammogram, 10/30/2011 mammogram, 10/29/2010 mammogram and 10/29/2009 mammogram - [facility]. The tissue of both breasts is almost entirely fat. There are benign vascular calcifications in both breasts. There also is a benign density in the right breast. No significant masses, calcifications, or other findings are seen in either breast. There has been no significant interval change. IMPRESSION: BENIGN There is no mammographic evidence of malignancy. A screening mammogram in one year is recommended. Stephie valdez/penrad:11/08/2013 10:01:38 Executive Housekeeper: Hermelinda Callejas, [facility] This exam was dictated and interpreted by [id number] at [facility], [place] 13. letter sent: Normal exam Mammogram BI-RADS: 2 Benign 11/07/2013 - - Read by: Stephie Gutierrez Dictated Date/time: 11/08/13 10:01 Electronically Signed by: Stephie Gutierrez MD 11/08/13 10:01 FINAL REPORT [facility] Vital Signs Vital Sign Value Date Comments Source Temperature Oral (F) 97.0 F 02/25/2018 [facility] BMI Calculated 37.21 02/25/2018 [facility] Height 157.48 cm 02/25/2018 [facility] Weight 92.273 02/25/2018 [facility] Respitory Rate 16 02/25/2018 [facility] Heart Rate 61 02/25/2018 [facility] Systolic (mm Hg) 147 02/25/2018 [facility] Diastolic (mm Hg) 57 02/25/2018 [facility] BMI Calculated 39.92 10/28/2017 [facility] Weight 92.727 10/28/2017 [facility] Height 152.4 cm 10/28/2017 [facility] Systolic (mm Hg) 136 10/28/2017 [facility] Diastolic (mm Hg) 60 10/28/2017 [facility] Heart Rate 62 10/28/2017 [facility] Respitory Rate 16 10/28/2017 [facility] Temperature Oral (F) 96.9 F 10/28/2017 [facility] Heart Rate 61 02/10/2017 [facility] Respitory Rate 16 02/10/2017 [facility] Systolic (mm Hg) 148 02/10/2017 [facility] Diastolic (mm Hg) 77 02/10/2017 [facility] Temperature Oral (F) 98.1 F 02/10/2017 [facility] Systolic (mm Hg) 127 02/10/2017 [facility] Diastolic (mm Hg) 61 02/10/2017 [facility] Respitory Rate 16 02/10/2017 [facility] Heart Rate 60 02/10/2017 [facility] Temperature Oral (F) 97.9 F 02/10/2017 [facility] Weight 88.636 02/10/2017 [facility] BMI Calculated 38.16 02/10/2017 [facility] Height 152.4 cm 02/10/2017 [facility] Temperature Oral (F) 98.0 F 02/10/2017 [facility] Heart Rate 67 02/10/2017 [facility] Respitory Rate 16 02/10/2017 [facility] Systolic (mm Hg) 124 02/10/2017 [facility] Diastolic (mm Hg) 75 02/10/2017 [facility] Weight 88.636 02/09/2017 [facility] BMI Calculated 38.16 02/09/2017 [facility] Height 152.4 cm 02/09/2017 [facility] Height 152.4 cm 02/07/2017 [facility] BMI Calculated 38.16 02/07/2017 [facility] Weight 88.636 02/07/2017 [facility] Systolic (mm Hg) 163 06/24/2016 [facility] Diastolic (mm Hg) 75 06/24/2016 [facility] Respitory Rate 13 06/24/2016 [facility] Systolic (mm Hg) 155 06/24/2016 [facility] Diastolic (mm Hg) 75 06/24/2016 [facility] Respitory Rate 16 06/24/2016 [facility] Respitory Rate 12 06/24/2016 [facility] Systolic (mm Hg) 127 06/24/2016 [facility] Diastolic (mm Hg) 68 06/24/2016 [facility] Heart Rate 60 06/24/2016 [facility] Temperature Oral (F) 97.7 F 06/22/2016 [facility] Heart Rate 88 06/22/2016 [facility] Weight 92.273 06/22/2016 [facility] BMI Calculated 37.21 06/22/2016 [facility] Height 157.48 cm 06/22/2016 [facility] Encounters Location Location Details Encounter Type Encounter Number Reason For Visit Attending Provider ADM Date DC Date Status Source [facility] Outpatient [id number] ROUTINE SCREENING GOLDY CLARKE 10/30/2011 Active [facility] Outpatient [id number] RUQ PAIN GOLDY CLARKE 06/02/2012 Active [facility] Outpatient [id number] SCREENING GOLDY CLARKE 11/01/2012 11/01/2012 Active [facility] Outpatient [id number] SCREENING MAMMOGRAM AARON MERLOS 11/07/2013 Active [facility] Outpatient [id number] Aaron Merlos 11/07/2013 11/08/2013 [facility] Outpatient [id number] Aaron Merlos 03/30/2014 03/31/2014 [facility] Outpatient [id number] AARON MERLOS 07/01/2015 [facility] Outpatient [id number] Aaron Merlos 07/09/2015 07/10/2015 [facility] Outpatient [id number] Aaron Merlos 09/25/2015 09/26/2015 [facility] Outpatient [id number] AARON MERLOS 10/24/2015 Active [facility] Outpatient [id number] Aaron Merlos 11/14/2015 11/15/2015 [facility] Outpatient [id number] AARON MERLOS 11/29/2015 Active [facility] Outpatient [id number] AARON MERLOS 03/24/2016 Active [facility] Bedded Outpatient [id number] Momo Calderon 06/24/2016 06/24/2016 [facility] Outpatient [id number] MICHELLE MOORE 07/24/2016 Active [facility] Outpatient [id number] AARON MERLOS 07/24/2016 Active [facility] Outpatient [id number] AARON MERLOS 10/30/2016 Active [facility] Outpatient [id number] Aaron Merlos 12/08/2016 12/09/2016 [facility] Observation [id number] Jose Shaw 02/07/2017 02/10/2017 [facility] Outpatient [id number] AARON MERLOS 02/23/2017 Active [facility] Outpatient [id number] AARON MERLOS 03/04/2017 Active [facility] Outpatient [id number] AARON MERLOS 06/24/[address] [facility] Phone Message [id number] 08/19/2017 08/21/2017 [facility] Phone Message [id number] 10/01/2017 10/03/2017 [facility] Phone Message [id number] 10/01/2017 10/03/2017 [facility] Outpatient [id number] AARON MERLOS 10/13/2017 Active [facility] Outpatient [id number] AARON MERLOS 10/28/[address] [facility] Outpatient [id number] Aaron Merlos 10/28/2017 10/29/2017 [facility] Outpatient [id number] Aaron Merlos 12/08/2017 12/09/2017 [facility] Phone Message [id number] 12/30/2017 01/01/2018 [facility] Outpatient [id number] AARON MERLOS 02/25/[address] [facility] Outpatient [id number] Aaron Merlos 02/25/2018 02/26/2018 [facility] Outpatient [id number] AARON MUHAMMADO 08/04/2018 Active [facility] Outpatient [id number] AARON MUHAMMADO 08/12/2018 Active [facility] Outpatient [id number] AARON MUHAMMADO 08/26/2018 Active [facility] Procedures Procedure Code Date Perfomer Comments Source Screening mammography<sup>1</sup> [id number] 12/08/2017 IMPRESSION: BENIGN RECOMMENDATION:There is no mammographic evidence of malignancy. A 1 year screening mammogram is recommended.(12/09/2018) [facility] Screening mammography<sup>1</sup> [id number] 12/08/2017 IMPRESSION: BENIGN RECOMMENDATION:There is no mammographic evidence of malignancy. A 1 year screening mammogram is recommended.(12/09/2018) [facility] Influenza vaccination [id number] 06/24/2017 [facility] Influenza vaccination [id number] 06/24/2017 [facility] Laparoscopic cholecystectomy [id number] 02/08/2017 [facility] Pneumococcal vaccination<sup>2</sup> [id number] 02/08/2017 Prevnar- 13 [facility] Laparoscopic cholecystectomy [id number] 02/08/2017 [facility] Pneumococcal vaccination<sup>2</sup> [id number] 02/08/2017 Prevnar- 13 [facility] Bone density scan<sup>1</sup> [id number] 12/08/2016 osteopenia of LS [facility] Screening mammography<sup>2</sup> [id number] 12/08/2016 IMPRESSION: BENIGN There is no mammographic evidence of malignancy. A 1 year screening mammogram is recommended. [facility] Bone density scan<sup>2</sup> [id number] 12/08/2016 osteopenia of LS [facility] Screening mammography<sup>3</sup> [id number] 12/08/2016 IMPRESSION: BENIGN There is no mammographic evidence of malignancy. A 1 year screening mammogram is recommended. [facility] Bone density scan<sup>3</sup> [id number] 12/08/2016 osteopenia of LS [facility] Screening mammography<sup>4</sup> [id number] 12/08/2016 IMPRESSION: BENIGN There is no mammographic evidence of malignancy. A 1 year screening mammogram is recommended. [facility] Bone density scan<sup>3</sup> [id number] 12/08/2016 osteopenia of LS [facility] Screening mammography<sup>4</sup> [id number] 12/08/2016 IMPRESSION: BENIGN There is no mammographic evidence of malignancy. A 1 year screening mammogram is recommended. [facility] Diabetic retinal eye exam [id number] 09/20/2016 [facility] Diabetic retinal eye exam [id number] 09/20/2016 [facility] Colonoscopy<sup>3</sup> [id number] 06/24/2016 diverticulosis, polyp in rectosigmoid colon [facility] Colonoscopy<sup>4</sup> [id number] 06/24/2016 diverticulosis, polyp in rectosigmoid colon [facility] Colonoscopy<sup>5</sup> [id number] 06/24/2016 diverticulosis, polyp in rectosigmoid colon [facility] Colonoscopy<sup>5</sup> [id number] 06/24/2016 diverticulosis, polyp in rectosigmoid colon [facility] Pneumococcal vaccination<sup>6</sup> [id number] 07/16/2012 Pneumovax [facility] Pneumococcal vaccination<sup>6</sup> [id number] 07/16/2012 Pneumovax [facility] Colonoscopy<sup>4</sup> [id number] 03/15/2011 hemorrhoids, diverticulosis, repeat in 5 years [facility] Colonoscopy<sup>5</sup> [id number] 03/15/2011 hemorrhoids, diverticulosis, repeat in 5 years [facility] Colonoscopy<sup>7</sup> [id number] 03/15/2011 hemorrhoids, diverticulosis, repeat in 5 years [facility] Colonoscopy<sup>1</sup> [id number] 03/15/2011 hemorrhoids, diverticulosis, repeat in 5 years [facility] Colonoscopy<sup>7</sup> [id number] 03/15/2011 hemorrhoids, diverticulosis, repeat in 5 years [facility] Colonoscopy [id number] 03/15/2011 [facility] Operation [id number] [facility]
--- OUTSIDE RECORDS SUMMARY | 2018-08-23 08:39 | XMS REPORT | CCD ---
Author Author Auto Generated Organization [facility] Address Unknown Phone Unavailable Care Team Providers Care Cattle Care Worker Name Role Phone William Recinos RP Allergies, Adverse Reactions, Alerts Substance Reaction Status NKDA Active
--- OUTSIDE RECORDS SUMMARY | 2018-08-23 08:40 | XMS REPORT | CCD ---
Author Author Auto Generated Organization [facility] Address Unknown Phone Unavailable Care Team Providers Care Potato Grader Name Role Phone William Recinos RP Allergies, Adverse Reactions, Alerts Substance Reaction Status NKDA Active
--- OUTSIDE RECORDS SUMMARY | 2018-08-23 08:40 | XMS REPORT | CCD ---
Author Author Auto Generated Organization [facility] Address Unknown Phone Unavailable Care Team Providers Care Manager Corporate Responsibility Name Role Phone William Recinos RP Allergies, Adverse Reactions, Alerts Substance Reaction Status NKDA Active
--- OUTSIDE RECORDS SUMMARY | 2018-08-23 08:40 | XMS REPORT | Summary of Care ---
Author Author [facility] Organization [facility] Address Unknown Phone Unavailable Encounter MARLENE Becker(FIN) [id number] Date(s): 10/28/17 - 10/28/[address] [facility] [address], [address] [place] [address]- [phone] Discharge Disposition: Home or Self Care Attending Physician: Dianne Vitale MD Vital Signs Most recent to 1 oldest [Reference Range]: Height 152.4 cm (10/28/17 8:46 AM) Temperature Oral 96.9 DegF [96.4-99.1 DegF] (10/28/17 8:46 AM) Blood Pressure 136/60 mmHg [90-140/60-90 mmHg] (10/28/17 8:46 AM) Respiratory Rate 16 BRMIN [14-20 BRMIN] (10/28/17 8:46 AM) Peripheral Pulse 62 bpm Rate [60-100 bpm] (10/28/17 8:46 AM) Weight 92.727 kg (10/28/17 8:46 AM) Body Mass Index 39.92 m2 (10/28/17 8:46 AM) Problem List Condition Effective Dates Status Health Status Informant Acute Resolved cholecystitis(Confir med) Benign hypertension Active with chronic kidney disease, stage III(Confirmed) Left breast Resolved mass(Confirmed) Screening for breast Active cancer(Confirmed) Chronic kidney 06/28/13 Active disease, stage 3(Confirmed)1 Dermatitis(Confirmed Active ) Gastroesophageal Active reflux disease2 Heel pain(Confirmed) Active Right hip Active pain(Confirmed) History of Active cholecystectomy(Conf irmed) Suprapubic Active pain(Confirmed) Lumbago(Confirmed) Active 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) Medicare annual Active wellness visit, subsequent(Confirmed ) Osteoarthritis of 06/28/13 Active knee3 Osteopenia4 11/01/13 Active Osteoporosis(Confirm Active ed) Screening for Active diabetic retinopathy(Confirme d) Screening for colon Active cancer(Confirmed) Rheumatoid arthritis Active with positive rheumatoid factor(Confirmed) Systemic lupus 06/28/13 Active erythematosus(Confir med)5 Type 2 diabetes Active mellitus with stage 3 chronic kidney disease(Confirmed) Encounter for Active immunization(Confirm ed) Vitamin D 07/06/14 Active deficiency(Confirmed )6 1Data migrated from [employer] on 02/16/15. 2Data migrated from [employer] on 02/16/15. 3Data migrated from [employer] on 02/16/15. 4Data migrated from [employer] on 02/16/15. 5Data migrated from [employer] on 02/16/15. 6Data migrated from [employer] on 02/16/15. Allergies, Adverse Reactions, Alerts Substance Reaction Severity Status NKDA Active Medications No Known Medications Results No data available for this section Immunizations Given and Recorded Vaccine Date Status Refusal Reason influenza virus vaccine, inactivated1 06/24/17 Given influenza virus vaccine, inactivated 07/24/16 Given influenza virus vaccine, inactivated 07/01/15 Given influenza virus vaccine, inactivated2 07/06/14 Given influenza virus vaccine, inactivated3 06/28/13 Given pneumococcal 13-valent vaccine 02/08/17 Given Hx influenza vaccine-unspecified4 07/06/14 Given pneumococcal 23-valent vaccine5 07/16/08 Given 1Result Comment: Patient waited 15 min with no reaction. 2Result Comment: fluzone high dose [[id number]]. Migrated from OBS ; Data migrated from [employer] on 10/22/2015. 3Result Comment: fluzone (>3 yrs.) [[id number]]. Migrated from OBS ; Data migrated from [employer] on 10/22/2015. 4Result Comment: done high dose. Migrated from OBS ; Data migrated from [employer] on 10/22/2015. 5Result Comment: pneumovax. Migrated from OBS ; Data migrated from [employer] on 10/22/2015. Procedures Procedure Date Related Diagnosis Body Site Status Screening mammography1 12/08/17 Completed Laparoscopic cholecystectomy 02/08/17 Completed Bone density scan2 12/08/16 Completed Screening mammography3 12/08/16 Completed Diabetic retinal eye exam 2016 Completed Colonoscopy4 06/24/16 Completed Colonoscopy5 03/15/11 Completed 1IMPRESSION: BENIGN RECOMMENDATION:There is no mammographic evidence of malignancy. A 1 year screeni ng mammogram is recommended.(12/09/2018) 2osteopenia of LS 3IMPRESSION: BENIGN There is no mammographic evidence of malignancy. A 1 year screening mammogram i s recommended. 4diverticulosis, polyp in rectosigmoid colon 5hemorrhoids, diverticulosis, repeat in 5 years Social History Social History Type Response Substance Abuse Use: None. Exercise Exercise duration: 60. Exercise frequency: Daily. Exercise type: Walking. Employment/School Work/School description: Housewife.1 Alcohol Never Smoking Status Never smoker; Lives with someone who smokes; Cigarette Smoking Last 365 Days No; Reg Smoking Cessation Counseling No entered on: 10/28/17 1Middle school not completed Assessment and Plan No data available for this section
--- OUTSIDE RECORDS SUMMARY | 2018-08-23 08:40 | XMS REPORT | Summary of Care ---
Author Author [facility] Primary Care [facility] Organization [facility] Address Unknown Phone Unavailable Encounter HQ Eugenio(FIN) [id number] Date(s): 10/01/17 - 10/02/17 [facility] [address], [address] [place], [place] [address]- [phone] Vital Signs No data available for this section Problem List Condition Effective Dates Status Health Status Informant Acute Resolved cholecystitis(Confir med) Benign hypertension Active with chronic kidney disease, stage III(Confirmed) Left breast Resolved mass(Confirmed) Screening for breast Active cancer(Confirmed) Chronic kidney 06/28/13 Active disease, stage 3(Confirmed)1 Dermatitis(Confirmed Active ) Gastroesophageal Active reflux disease2 Right hip Active pain(Confirmed) History of Active cholecystectomy(Conf irmed) Suprapubic Active pain(Confirmed) Lumbago(Confirmed) Active 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 2Result Comment: fluzone high dose [[id number]]. Migrated from OBS ; Data migrated from [employer] on 10/22/2015. 3Result Comment: fluzone (>3 yrs.) [[id number]]. Migrated from OBS ; Data migrated from [employer] on 10/22/2015. 4Result Comment: done high dose. Migrated from OBS ; Data migrated from [employer] on 10/22/2015. 5Result Comment: pneumovax. Migrated from OBS ; Data migrated from [employer] on 10/22/2015. Procedures Procedure Date Related Diagnosis Body Site Status Laparoscopic cholecystectomy 02/08/17 Completed Bone density scan1 12/08/16 Completed Screening mammography2 12/08/16 Completed Diabetic retinal eye exam 2016 Completed Colonoscopy3 06/24/16 Completed Colonoscopy4 03/15/11 Completed 1osteopenia of LS 2IMPRESSION: BENIGN There is no mammographic evidence of malignancy. A 1 year screening mammogram i s recommended. 3diverticulosis, polyp in rectosigmoid colon 4hemorrhoids, diverticulosis, repeat in 5 years Social History Social History Type Response Substance Abuse Use: None. Exercise Exercise duration: 60. Exercise frequency: Daily. Exercise type: Walking. 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
--- OUTSIDE RECORDS SUMMARY | 2018-08-23 08:40 | XMS REPORT | Summary of Care ---
Author Author [facility] Primary Care [facility] Organization [facility] Address Unknown Phone Unavailable Encounter MARLENE Becker(FIN) [id number] Date(s): 10/01/17 - 10/02/17 [facility] [address], [address] [place] [address]- [phone] Vital Signs No data available for this [...] no reaction. 2Result Comment: fluzone high dose [[id number]]. Migrated from OBS ; Data migrated from [employer] on 10/22/2015. 3Result Comment: fluzone (>3 yrs.) [[id number]]. Migrated from OBS ; Data migrated from [employer] on 10/22/2015. 4Result Comment: done high dose. Migrated from OBS ; Data migrated from [employer] on 10/22/2015. 5Result Comment: pneumovax. Migrated from OBS ; Data migrated from [employer] on 10/22/2015. Procedures Procedure Date Related Diagnosis [...]
--- OUTSIDE RECORDS SUMMARY | 2018-08-23 08:40 | XMS REPORT | Summary of Care ---
Author Author [facility] Organization [facility] Address Unknown Phone Unavailable Encounter MARLENE Becker(DAX) [id number] Date(s): 11/14/15 - 11/14/15 [facility] [address] [place] [address]- [phone] Discharge Disposition: Home Attending Physician: Dianne Vitale MD Referring Physician: Dianne Vitale MD Vital Signs No data available for this section Problem List Condition Effective Dates Status Health Status Informant Allergic contact 07/23/14 Resolved dermatitis1, 2 Benign hypertension Active with chronic kidney disease, stage III(Confirmed) Left breast Active mass(Confirmed) Screening for breast Resolved cancer(Confirmed) CKD (chronic kidney 06/28/13 Active disease) stage 3, GFR 30-59 ml/min3 Gastroesophageal Active reflux disease4 Right hip Active pain(Confirmed) Mass of right Active thigh(Confirmed) Obesity5 11/09/14 Active Osteoarthritis of 06/28/13 Active knee6 Osteopenia7 11/01/13 Active Peripheral Active neuropathy(Confirmed ) Screening for Active glaucoma(Confirmed) Screening for Active diabetic retinopathy(Confirme d) Systemic lupus 06/28/13 Active erythematosus8 Type 2 diabetes Active mellitus, controlled, with renal complications(Confir med) Vitamin D 07/06/14 Active deficiency9 1Data migrated from [employer] on 03/27/15. 2Data migrated from [employer] on 02/16/15. 3Data migrated from [employer] on 02/16/15. 4Data migrated from [employer] on 02/16/15. 5Data migrated from [employer] on 03/27/15. 6Data migrated from [employer] on 02/16/15. 7Data migrated from [employer] on 02/16/15. 8Data migrated from [employer] on 02/16/15. 9Data migrated from [employer] on 02/16/15. Allergies, Adverse Reactions, Alerts Substance Reaction Severity Status NKDA Active Medications No data available for this section Results No data available for this section Immunizations Vaccine Date Refusal Reason Hx influenza vaccine-unspecified1 07/06/14 influenza virus vaccine, inactivated 07/01/15 influenza virus vaccine, inactivated2 07/06/14 influenza virus vaccine, inactivated3 06/28/13 pneumococcal 23-valent vaccine4 07/16/08 1Result Comment: done high dose. Migrated from OBS ; Data migrated from [employer] on 10/22/2015. 2Result Comment: fluzone high dose [[id number]]. Migrated from OBS ; Data migrated from [employer] on 10/22/2015. 3Result Comment: fluzone (>3 yrs.) [[id number]]. Migrated from OBS ; Data migrated from [employer] on 10/22/2015. 4Result Comment: pneumovax. Migrated from OBS ; Data migrated from [employer] on 10/22/2015. Procedures Procedure Date Related Diagnosis Body Site Colonoscopy1 03/15/11 1hemorrhoids, diverticulosis, repeat in 5 years Social History Social History Type Response Substance Abuse Use: None. Exercise Exercise duration: 60. Exercise frequency: Daily. Exercise type: Walking. 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
--- OUTSIDE RECORDS SUMMARY | 2018-08-23 08:40 | XMS REPORT | Summary of Care ---
Author Author [facility] Address Unknown Phone Unavailable Encounter MARLENE Becker(FIN) [id number] Date(s): 10/01/17 - 10/02/17 [facility] [address], [address] [place] [address]- [phone] Vital Signs No data available for this [...] no reaction. 2Result Comment: fluzone high dose [[id number]]. Migrated from OBS ; Data migrated from [employer] on 10/22/2015. 3Result Comment: fluzone (>3 yrs.) [[id number]]. Migrated from OBS ; Data migrated from [employer] on 10/22/2015. 4Result Comment: done high dose. Migrated from OBS ; Data migrated from [employer] on 10/22/2015. 5Result Comment: pneumovax. Migrated from OBS ; Data migrated from [employer] on 10/22/2015. Procedures Procedure Date Related Diagnosis [...]
--- OUTSIDE RECORDS SUMMARY | 2018-08-23 08:40 | XMS REPORT | Summary of Care ---
Author Author [facility] Organization [facility] Address Unknown Phone Unavailable Encounter MARLENE Becker(DAX) [id number] Date(s): 06/24/16 - 06/24/16 [facility] [address] [place] [address]- Discharge Disposition: Home or Self Care Attending Physician: Momo Calderon MD Referring Physician: Momo Calderon MD Vital Signs 1 2 3 Most recent to oldest [Reference Range]: 157.48 cm (06/22/16 12:33 PM) Height 97.7 DegF (06/22/16 12:38 PM) Temperature Oral [96.4-99.1 DegF] 163/75 mmHg *HI* (06/24/16 11:03 AM) 155/75 mmHg *HI* (06/24/16 10:50 AM) 127/68 mmHg (06/24/16 10:35 AM) Blood Pressure [90-140/60-90 mmHg] 13 BRMIN *LOW* (06/24/16 11:03 AM) 16 BRMIN (06/24/16 10:50 AM) 12 BRMIN *LOW* (06/24/16 10:35 AM) Respiratory Rate [14-20 BRMIN] 60 bpm (06/24/16 9:18 AM) 88 bpm (06/22/16 12:38 PM) Peripheral Pulse Rate [60-100 bpm] 92.273 kg (06/22/16 12:33 PM) Weight 37.21 m2 (06/22/16 12:33 PM) Body Mass Index Problem List Condition Effective Dates Status Health Status Informant Allergic contact 07/23/14 Resolved dermatitis1, 2 Benign hypertension Active with chronic kidney disease, stage III(Confirmed) Left breast Resolved mass(Confirmed) Screening for breast Resolved cancer(Confirmed) CKD (chronic kidney 06/28/13 Active disease) stage 3, GFR 30-59 ml/min3 Gastroesophageal Active reflux disease4 Right hip Active pain(Confirmed) History of colon Active polyps(Confirmed) Hypertension(Confirm Active ed) 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 2Data migrated from [employer] on 02/16/15. 3Data migrated from [employer] on 02/16/15. 4Data migrated from [employer] on 02/16/15. 5Ruled out 6Data migrated from [employer] on 03/27/15. 7Data migrated from [employer] on 02/16/15. 8Data migrated from [employer] on 02/16/15. 9Data migrated from [employer] on 02/16/15. 10Data migrated from [employer] on 02/16/15. Allergies, Adverse Reactions, Alerts Substance Reaction Severity Status NKDA Active Medications albuterol-ipratropium 2.5-0.5 mg inhalation solution 3 mL, NEB, ONCE, 0 Refill(s) Start Date: 06/24/16 Status: Ordered albuterol-ipratropium 2.5-0.5 mg inhalation solution 3 mL, Route: NEB, Drug Form: SOLN, Dosing Weight 92.273, kg, ONCE, STAT, Start d ate: 06/24/16 9:21:00 CDT, Stop date: 06/24/16 9:21:00 CDT Notes: (Same as: Leila) Start Date: 06/24/16 Stop Date: 06/24/16 Status: Discontinued alendronate 70 mg oral tablet 2 tabs, PO, 0 Refill(s) Start Date: 06/22/16 Status: Ordered aspirin 81 mg tablet, enteric coated 81 mg=1 tab, PO, Daily, # 90 tab, 3 Refill(s) Start Date: 06/22/16 Stop Date: 06/24/16 Status: Discontinued hydroxychloroquine sulfate 200 mg oral tablet 400 mg=2 tab, PO, Daily, # 60 tab, 0 Refill(s) Start Date: 06/22/16 Status: Ordered leflunomide 10 mg oral tablet 10 mg=1 tab, PO, Daily, # 30 tab, 0 Refill(s) Start Date: 06/22/16 Status: Ordered NexIUM 40 mg oral delayed release capsule 40 mg=1 cap, PO, Daily, # 30 cap, 0 Refill(s) Start Date: 06/22/16 Status: Ordered sodium chloride 0.9% 500 ml INJ 500 mL 500 mL, Rate: 25 ml/hr, Infuse over: 20 hr, Route: IV, Dosing Weight 92.273 kg, Total Volume: 500, Start date: 06/24/16 9:21:00 CDT, Duration: 1 day, Stop date: 06/25/16 9:20:00 CDT Start Date: 06/24/16 Stop Date: 06/24/16 Status: Discontinued Vitamin B12 =1 mL, PO, Daily, 0 Refill(s) Start Date: 06/22/16 Status: Ordered Results No data available for this section Immunizations Given and Recorded Vaccine Date Status Refusal Reason Hx influenza vaccine-unspecified1 07/06/14 Given influenza virus vaccine, inactivated 07/01/15 Given influenza virus vaccine, inactivated2 07/06/14 Given influenza virus vaccine, inactivated3 06/28/13 Given pneumococcal 23-valent vaccine4 07/16/08 Given 1Result Comment: done high dose. Migrated from OBS ; Data migrated from [employer] on 10/22/2015. 2Result Comment: fluzone high dose [[id number]]. Migrated from OBS ; Data migrated from [email or web address] on 10/22/2015. 3Result Comment: fluzone (>3 yrs.) [[id number]]. Migrated from OBS ; Data migrated from [email or web address] on 10/22/2015. 4Result Comment: pneumovax. Migrated from OBS ; Data migrated from [employer] on 10/22/2015. Procedures Procedure Date Related Diagnosis Body Site Colonoscopy1 03/15/11 Operation 1hemorrhoids, diverticulosis, repeat in 5 years Social History Social History Type Response Substance Abuse Use: None. Exercise Exercise duration: 60. Exercise frequency: Daily. Exercise type: Walking. 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
--- OUTSIDE RECORDS SUMMARY | 2018-08-23 08:40 | XMS REPORT | Summary of Care ---
Author Author [facility] Organization [facility] Address Unknown Phone Unavailable Encounter MARLENE Becker(DAX) [id number] Date(s): 07/09/15 - 07/09/15 [facility] [address] [place] [address]- Discharge Disposition: Home Attending Physician: Dianne Vitale MD Referring Physician: Dianne Vitale MD Vital Signs No data available for this section Problem List Condition Effective Dates Status Health Status Informant Allergic contact 07/23/14 Active dermatitis1, 2 Benign hypertension Active with chronic kidney disease, stage III(Confirmed) Screening for breast Active cancer(Confirmed) CKD (chronic kidney 06/28/13 Active disease) stage 3, GFR 30-59 ml/min3 Gastroesophageal Active reflux disease4 Obesity5 11/09/14 Active 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 Exercise Exercise duration: 60. Exercise frequency: Daily. Exercise type: Walking. Employment/School Work/School description: Housewife. Highest education level: None.1 Alcohol Never Smoking Status Never smoker; Exposure to Tobacco Smoke None; Cigarette Smoking Last 365 Days No; Reg Smoking Cessation Counseling No 1Middle school not completed Assessment and Plan No data available for this section
--- OUTSIDE RECORDS SUMMARY | 2018-08-23 08:40 | XMS REPORT | Summary of Care ---
Author Author [facility] Organization [facility] Address Unknown Phone Unavailable Encounter HQ Eugenio(DAX) [id number] Date(s): 02/07/17 - 02/10/17 [facility] [address] [place] [address]- [phone] Discharge Disposition: Home or Self Care Attending Physician: Jose Head MD Admitting Physician: Jose Head MD Vital Signs 1 2 3 Most recent to oldest [Reference Range]: 152.4 cm (02/10/17 9:18 AM) 152.4 cm (02/09/17 9:00 AM) 152.4 cm (02/07/17 11:00 AM) Height 98.1 DegF (02/10/17 3:51 PM) 97.9 DegF (02/10/17 12:10 PM) 98.0 DegF (02/10/17 8:10 AM) Temperature Oral [96.4-99.1 DegF] 148/77 mmHg *HI* (02/10/17 3:51 PM) 127/61 mmHg (02/10/17 12:10 PM) 124/75 mmHg (02/10/17 8:10 AM) Blood Pressure [90-140/60-90 mmHg] 16 BRMIN (02/10/17 3:51 PM) 16 BRMIN (02/10/17 12:10 PM) 16 BRMIN (02/10/17 8:10 AM) Respiratory Rate [14-20 BRMIN] 61 bpm (02/10/17 3:51 PM) 60 bpm (02/10/17 12:10 PM) 67 bpm (02/10/17 8:10 AM) Peripheral Pulse Rate [60-100 bpm] 88.636 kg (02/10/17 9:18 AM) 88.636 kg (02/09/17 9:00 AM) 88.636 kg (02/07/17 11:00 AM) Weight 38.16 m2 (02/10/17 9:18 AM) 38.16 m2 (02/09/17 9:00 AM) 38.16 m2 (02/07/17 11:00 AM) Body Mass Index Problem List Condition Effective Dates Status Health Status Informant Allergic contact 07/23/14 Resolved dermatitis1, 2 Benign hypertension Active with chronic kidney disease, stage III(Confirmed) Left breast Resolved mass(Confirmed) Screening for breast Active cancer(Confirmed) CKD (chronic kidney 06/28/13 Active disease) stage 3, GFR 30-59 ml/min(Confirmed)3 Gastroesophageal Active reflux disease4 Right hip Active pain(Confirmed) History of Resolved lupus(Confirmed) 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) Mass of right Resolved thigh(Confirmed)5 Osteoarthritis of 06/28/13 Active knee6 Osteopenia7 11/01/13 Active Osteoporosis(Confirm Active ed) Screening for Active glaucoma(Confirmed) Screening for Active diabetic retinopathy(Confirme d) Screening for colon Active cancer(Confirmed) Rheumatoid arthritis Active with positive rheumatoid factor(Confirmed) Lupus(Confirmed) Resolved Systemic lupus 06/28/13 Active erythematosus8 Type 2 diabetes with Active stage 3 chronic kidney disease GFR 30-59(Confirmed) 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 2Data migrated from [employer] on 02/16/15. 3Data migrated from [employer] on 02/16/15. 4Data migrated from [employer] on 02/16/15. 5Ruled out 6Data migrated from [employer] on 02/16/15. 7Data migrated from [employer] on 02/16/15. 8Data migrated from [employer] on 02/16/15. 9Data migrated from [employer] on 02/16/15. Allergies, Adverse Reactions, Alerts Substance Reaction Severity Status NKDA Active Medications acetaminophen 650 mg, 2 tab, Route: PO, Drug form: TAB, Q6H, Dosing Weight 89.091, kg, PRN Eri n 1-3/Temp > 100.4 F, Start date: 02/07/17 8:56:00 CDT, Duration: 30 day, Stop date: 03/09/17 8:55:00 CDT Notes: Do not exceed 4 gm/day. (Same as: Tylenol) Start Date: 02/07/17 Stop Date: 02/10/17 Status: Discontinued albuterol-ipratropium 2.5-0.5 mg inhalation solution 3 mL, Route: NEB, Dosing Weight 88.636, kg, ONCE, STAT, Start date: 02/08/17 10: 32:00 CDT, Stop date: 02/08/17 10:32:00 CDT Start Date: 02/08/17 Stop Date: 02/08/17 Status: Discontinued D5NS + KCL 20mEq/L 1000ml (Premix) 1,000 mL 1,000 mL, Rate: 50 ml/hr, Infuse over: 20 hr, Route: IV, Dosing Weight 88.636 kg , Total Volume: 1,000, Start date: 02/08/17 19:08:00 CDT, Duration: 30 day, Stop date: 03/10/17 19:07:00 CDT Notes: PREMIX IV - Do Not AlterWASTE: F/P - Sink; E - Municipal Trash Bin Start Date: 02/08/17 Stop Date: 02/10/17 Status: Discontinued D5NS + KCL 20mEq/L 1000ml (Premix) 1,000 mL 1,000 mL, Rate: 75 ml/hr, Infuse over: 13.3 hr, Route: IV, Dosing Weight 89.091 kg, Total Volume: 1,000, Start date: 02/07/17 8:57:00 CDT, Duration: 30 day, Sto p date: 03/09/17 8:56:00 CDT Notes: PREMIX IV - Do Not AlterWASTE: F/P - Sink; E - Municipal Trash Bin Start Date: 02/07/17 Stop Date: 02/08/17 Status: Discontinued Dilaudid 0.5 mg, 0.5 mL, Route: IVP, Drug form: INJ, Q3H, Dosing Weight 89.091, kg, PRN P ain Score 7-10, Start date: 02/07/17 8:56:00 CDT, Duration: 30 day, Stop date: 0 03/09/17 8:55:00 CDT Start Date: 02/07/17 Stop Date: 02/10/17 Status: Discontinued famotidine (ANES) Route: IV, Drug form: INJ, ONCE, Stop date: 02/08/17 14:07:00 CDT Start Date: 02/08/17 Stop Date: 02/08/17 Status: Completed fentaNYL (ANES) Route: IV, Drug form: INJ, ONCE, Stop date: 02/08/17 14:02:00 CDT Start Date: 02/08/17 Stop Date: 02/08/17 Status: Completed Flagyl 500 mg oral tablet 500 mg=1 tab, PO, Q8H, X 7 day, # 21 tab, 0 Refill(s) Start Date: 02/09/17 Stop Date: 02/16/17 Status: Ordered glycopyrrolate (ANES) Route: IV, Drug form: INJ, ONCE, Stop date: 02/08/17 14:30:00 CDT Start Date: 02/08/17 Stop Date: 02/08/17 Status: Completed hydroxychloroquine 400 mg, PO, Daily, 0 Refill(s) Start Date: 02/07/17 Status: Ordered Lactated Ringers Injection IV 1000 mL 1,000 mL, Rate: 25 ml/hr, Infuse over: 40 hr, Route: IV, Dosing Weight 88.636 kg , Total Volume: 1,000, Start date: 02/08/17 10:32:00 CDT, Duration: 30 day, Stop date: 03/10/17 10:31:00 CDT Start Date: 02/08/17 Stop Date: 02/08/17 Status: Discontinued Levaquin 500 mg oral tablet 500 mg=1 tab, PO, Q24H, X 7 day, # 7 tab, 0 Refill(s) Start Date: 02/09/17 Stop Date: 02/16/17 Status: Ordered lidocaine (ANES) Route: IV, Drug form: INJ, ONCE, Stop date: 02/08/17 13:57:00 CDT Start Date: 02/08/17 Stop Date: 02/08/17 Status: Completed lisinopril 10 mg, PO, Daily, 0 Refill(s) Start Date: 02/07/17 Status: Ordered LR 1000 mL INJ (ANES) Route: IV, Total Volume: 1,000, Start date: 02/08/17 12:55:00 CDT, Stop date: 13:55:00 CDT Start Date: 02/08/17 Stop Date: 02/08/17 Status: Completed metoprolol (ANES) Route: IV, Drug form: INJ, ONCE, Stop date: 02/08/17 14:12:00 CDT Start Date: 02/08/17 Stop Date: 02/08/17 Status: Completed morphine Sulfate 4 mg, Route: IVP, ONCE, Dosing Weight 89.091, kg, Priority: STAT, Start date: 6:11:00 CDT, Stop date: 02/07/17 6:11:00 CDT Start Date: 02/07/17 Stop Date: 02/07/17 Status: Completed morphine Sulfate 4 mg, Route: IVP, ONCE, Dosing Weight 89.091, kg, Priority: STAT, Start date: 3:28:00 CDT, Stop date: 02/07/17 3:28:00 CDT Start Date: 02/07/17 Stop Date: 02/07/17 Status: Completed neostigmine (ANES) Route: IV, Drug form: INJ, ONCE, Stop date: 02/08/17 14:30:00 CDT Start Date: 02/08/17 Stop Date: 02/08/17 Status: Completed NS (Bolus) IV 1,000 mL, 1,000 ml/hr, Infuse Over: 1 hr, Route: IV, ONCE, Priority: STAT, Dosin g Weight 89.091 kg, Start date: 02/07/17 3:28:00 CDT, Duration: 1 doses or times , Stop date: 02/07/17 3:28:00 CDT Start Date: 02/07/17 Stop Date: 02/07/17 Status: Completed ondansetron 4 mg, 2 mL, Route: IVP, Drug form: INJ, Q6H, Dosing Weight 89.091, kg, PRN Nause a & Vomiting, Start date: 02/07/17 8:56:00 CDT, Duration: 30 day, Stop date: 03/09/17 8:55:00 CDT Notes: (Same as: Zofran) MEDICATION WASTE Product Size: 4 mgProduct Was rebecca: ___ mg Start Date: 02/07/17 Stop Date: 02/10/17 Status: Discontinued ondansetron (ANES) Route: IV, Drug form: INJ, ONCE, Stop date: 02/08/17 14:30:00 CDT Start Date: 02/08/17 Stop Date: 02/08/17 Status: Completed pneumococcal 13-valent vaccine 0.5 mL, Route: IM, Drug Form: INJ, Daily, Start date: 02/08/17 9:00:00 CDT, Stop date: 02/08/17 17:00:00 CDT Notes: Shake well prior to use (Same as: Prevnar 13) Start Date: 02/08/17 Stop Date: 02/08/17 Status: Completed propofol (ANES) Route: IV, Drug form: INJ, ONCE, Stop date: 02/08/17 14:02:00 CDT Start Date: 02/08/17 Stop Date: 02/08/17 Status: Completed rocuronium (ANES) Route: IV, Drug form: INJ, ONCE, Stop date: 02/08/17 14:07:00 CDT Start Date: 02/08/17 Stop Date: 02/08/17 Status: Completed Tylenol with Codeine #3 oral tablet 1 tab, PO, Q6H, PRN Pain, # 20 tab, 0 Refill(s) Start Date: 02/09/17 Status: Ordered Zofran 4 mg, Route: IVP, Drug form: INJ, ONCE, Dosing Weight 89.091, kg, Priority: STAT , Start date: 02/07/17 3:28:00 CDT, Stop date: 02/07/17 3:28:00 CDT Start Date: 02/07/17 Stop Date: 02/07/17 Status: Completed Zosyn 3.375 gm, Route: IVPB, ONCE, Dosing Weight 89.091, kg, Priority: STAT, Start josue e: 02/07/17 7:32:00 CDT, Duration: 1 doses or times, Stop date: 02/07/17 7:32:00 CDT, ABX Indication: Intra-abdominal Infection Start Date: 02/07/17 Stop Date: 02/07/17 Status: Completed Zosyn + sodium chloride 0.9% INJ 100 mL 3.375 gm, Route: IVPB, ABXQ8H, Dosing Weight 88.636, kg, CrCl >=20 ml/min infuse over 4 hours, Start date: 02/07/17 17:00:00 CDT, Duration: 7 day, Stop date: 02/14/17 9:00:00 CDT, ABX Indication: Intra-abdominal Infection Notes: (Same as: Zosyn)Dosing based on Piperacillin component MEDICATION [place] Product Size: 3375 mgProduct Wasted: ___ mg Start Date: 02/07/17 Stop Date: 02/10/17 Status: Discontinued Results ELECTROLYTES 1 2 3 Most recent to oldest [Reference Range]: 142 mEq/L (02/09/17 4:18 AM) 142 mEq/L (02/08/17 3:59 AM) 139 mEq/L (02/07/17 3:58 AM) Sodium Lvl [135-145 mEq/L] 4.2 mEq/L (02/09/17 4:18 AM) 4.1 mEq/L (02/08/17 3:59 AM) 3.5 mEq/L (02/07/17 3:58 AM) Potassium Lvl [3.5-5.1 mEq/L] 111 mEq/L *HI* (02/09/17 4:18 AM) 112 mEq/L *HI* (02/08/17 3:59 AM) 107 mEq/L (02/07/17 3:58 AM) Chloride Lvl [95-109 mEq/L] 23 mEq/L *LOW* (02/09/17 4:18 AM) 22 mEq/L *LOW* (02/08/17 3:59 AM) 22 mEq/L *LOW* (02/07/17 3:58 AM) CO2 [24-32 mEq/L] 12.2 mEq/L (02/09/17 4:18 AM) 12.1 mEq/L (02/08/17 3:59 AM) 13.5 mEq/L (02/07/17 3:58 AM) AGAP [10.0-20.0 mEq/L] CHEM PANEL 1 2 3 Most recent to oldest [Reference Range]: 0.81 mg/dL (02/09/17 4:18 AM) 0.79 mg/dL (02/08/17 3:59 AM) 1.00 mg/dL (02/07/17 3:58 AM) Creatinine Lvl [0.50-1.40 mg/dL] 71 mL/min/1.73m2 1 *NA* (02/09/17 4:18 AM) 73 mL/min/1.73m2 2 *NA* (02/08/17 3:59 AM) 55 mL/min/1.73m2 3 *NA* (02/07/17 3:58 AM) eGFR 10 mg/dL (02/09/17 4:18 AM) 14 mg/dL (02/08/17 3:59 AM) 30 mg/dL *HI* (02/07/17 3:58 AM) BUN [7-22 mg/dL] 18 (02/08/17 3:59 AM) 30 *HI* (02/07/17 3:58 AM) B/C Ratio [6-25] 107 mg/dL *HI* (02/09/17 4:18 AM) 115 mg/dL *HI* (02/08/17 3:59 AM) 108 mg/dL *HI* (02/07/17 3:58 AM) Glucose Lvl [70-99 mg/dL] 5.1 g/dL *LOW* (02/10/17 10:05 AM) 5.6 g/dL *LOW* (02/08/17 3:59 AM) 6.9 g/dL (02/07/17 3:58 AM) Total Protein [6.4-8.4 g/dL] 2.4 g/dL *LOW* (02/10/17 10:05 AM) 2.5 g/dL *LOW* (02/08/17 3:59 AM) 3.3 g/dL *LOW* (02/07/17 3:58 AM) Albumin Lvl [3.5-5.0 g/dL] 2.7 g/dL (02/10/17 10:05 AM) 3.1 g/dL (02/08/17 3:59 AM) 3.6 g/dL (02/07/17 3:58 AM) Globulin [2.7-4.2 g/dL] 0.9 (02/10/17 10:05 AM) 0.8 (02/08/17 3:59 AM) 0.9 (02/07/17 3:58 AM) A/G Ratio [0.7-1.6] 8.0 mg/dL *LOW* (02/09/17 4:18 AM) 7.6 mg/dL *LOW* (02/08/17 3:59 AM) 8.9 mg/dL (02/07/17 3:58 AM) Calcium Lvl [8.5-10.5 mg/dL] 1.9 mg/dL (02/08/17 3:59 AM) Magnesium Lvl [1.8-2.4 mg/dL] 37 unit/L (02/10/17 10:05 AM) 32 unit/L (02/08/17 3:59 AM) 21 unit/L (02/07/17 3:58 AM) ALT [0-65 unit/L] 31 unit/L (02/10/17 10:05 AM) 31 unit/L (02/08/17 3:59 AM) 20 unit/L (02/07/17 3:58 AM) AST [0-37 unit/L] 62 unit/L (02/10/17 10:05 AM) 61 unit/L (02/08/17 3:59 AM) 72 unit/L (02/07/17 3:58 AM) Alk Phos [39-136 unit/L] 0.5 mg/dL (02/10/17 10:05 AM) 0.4 mg/dL (02/08/17 3:59 AM) 0.3 mg/dL (02/07/17 3:58 AM) Bili Total [0.2-1.3 mg/dL] 0.1 mg/dL (02/10/17 10:05 AM) Bili Direct [0.0-0.3 mg/dL] 0.4 mg/dL (02/10/17 10:05 AM) Bili Indirect [0.0-1.0 mg/dL] 209 unit/L (02/07/17 3:58 AM) Lipase Lvl [73-393 unit/L] 1.7 mMol/L (02/07/17 3:58 AM) Lactic Acid Lvl [0.5-2.2 mMol/L] 1Result Comment: The eGFR is calculated using the [...] from the National Kidney Disease Education Program ( NKDEP) which additionally recommends that when the eGFR is used in patients with extremes of body mass index for purposes of drug dosing, the eGFR should be mul tiplied by the estimated BMI. 2Result Comment: The eGFR is calculated using the [...] from the National Kidney Disease Education Program ( NKDEP) which additionally recommends that when the eGFR is used in patients with extremes of body mass index for purposes of drug dosing, the eGFR should be mul tiplied by the estimated BMI. 3Result Comment: The eGFR is calculated using the [...] from the National Kidney Disease Education Program ( NKDEP) which additionally recommends that when the eGFR is used in patients with extremes of body mass index for purposes of drug dosing, the eGFR should be mul tiplied by the estimated BMI. CARDIAC ENZYMES 1 2 3 Most recent to oldest [Reference Range]: <0.02 ng/mL (02/08/17 3:59 AM) <0.02 ng/mL (02/07/17 9:04 PM) <0.02 ng/mL (02/07/17 3:58 AM) Troponin-I [0.00-0.40 ng/mL] HEMATOLOGY 1 2 3 Most recent to oldest [Reference Range]: 6.7 K/CMM (02/10/17 10:05 AM) 8.3 K/CMM (02/09/17 4:18 AM) 6.2 K/CMM (02/08/17 3:59 AM) WBC [3.7-10.4 K/CMM] 3.24 M/CMM *LOW* (02/10/17 10:05 AM) 3.40 M/CMM *LOW* (02/09/17 4:18 AM) 3.37 M/CMM *LOW* (02/08/17 3:59 AM) RBC [4.20-5.40 M/CMM] 10.4 g/dL *LOW* (02/10/17 10:05 AM) 11.0 g/dL *LOW* (02/09/17 4:18 AM) 11.0 g/dL *LOW* (02/08/17 3:59 AM) Hgb [12.0-16.0 g/dL] 30.9 % *LOW* (02/10/17 10:05 AM) 32.6 % *LOW* (02/09/17 4:18 AM) 32.1 % *LOW* (02/08/17 3:59 AM) Hct [36.0-48.0 %] 95.6 fL (02/10/17 10:05 AM) 96.0 fL (02/09/17 4:18 AM) 95.4 fL (02/08/17 3:59 AM) MCV [80.0-98.0 fL] 32.2 pg *HI* (02/10/17 10:05 AM) 32.3 pg *HI* (02/09/17 4:18 AM) 32.6 pg *HI* (02/08/17 3:59 AM) MCH [27.0-31.0 pg] 33.6 g/dL (02/10/17 10:05 AM) 33.7 g/dL (02/09/17 4:18 AM) 34.1 g/dL (02/08/17 3:59 AM) MCHC [32.0-36.0 g/dL] 14.7 % *HI* (02/10/17 10:05 AM) 14.9 % *HI* (02/09/17 4:18 AM) 14.8 % *HI* (02/08/17 3:59 AM) RDW [11.5-14.5 %] 170 K/CMM (02/10/17 10:05 AM) 187 K/CMM (02/09/17 4:18 AM) 189 K/CMM (02/08/17 3:59 AM) Platelet [133-450 K/CMM] 8.0 fL (02/10/17 10:05 AM) 8.9 fL (02/09/17 4:18 AM) 8.0 fL (02/08/17 3:59 AM) MPV [7.4-10.4 fL] 68.2 % (02/10/17 10:05 AM) 69.3 % (02/08/17 3:59 AM) 58.0 % (02/07/17 3:58 AM) Segs [45.0-75.0 %] 20.4 % (02/10/17 10:05 AM) 19.1 % *LOW* (02/08/17 3:59 AM) 31.2 % (02/07/17 3:58 AM) Lymphocytes [20.0-40.0 %] 8.5 % (02/10/17 10:05 AM) 8.2 % (02/08/17 3:59 AM) 8.4 % (02/07/17 3:58 AM) Monocytes [2.0-12.0 %] 2.3 % (02/10/17 10:05 AM) 2.7 % (02/08/17 3:59 AM) 1.5 % (02/07/17 3:58 AM) Eosinophils [0.0-4.0 %] 0.6 % (02/10/17 10:05 AM) 0.7 % (02/08/17 3:59 AM) 0.9 % (02/07/17 3:58 AM) Basophils [0.0-1.0 %] 4.6 K/CMM (02/10/17 10:05 AM) 4.3 K/CMM (02/08/17 3:59 AM) 6.7 K/CMM (02/07/17 3:58 AM) Segs-Bands # [1.5-8.1 K/CMM] 1.4 K/CMM (02/10/17 10:05 AM) 1.2 K/CMM (02/08/17 3:59 AM) 3.6 K/CMM (02/07/17 3:58 AM) Lymphocytes # [1.0-5.5 K/CMM] 0.6 K/CMM (02/10/17 10:05 AM) 0.5 K/CMM (02/08/17 3:59 AM) 1.0 K/CMM *HI* (02/07/17 3:58 AM) Monocytes # [0.0-0.8 K/CMM] 0.2 K/CMM (02/10/17 10:05 AM) 0.2 K/CMM (02/08/17 3:59 AM) 0.2 K/CMM (02/07/17 3:58 AM) Eosinophils # [0.0-0.5 K/CMM] 0.1 K/CMM (02/07/17 3:58 AM) Basophils # [0.0-0.2 K/CMM] Immunizations Given and Recorded Vaccine Date Status Refusal Reason Hx influenza vaccine-unspecified1 07/06/14 Given influenza virus vaccine, inactivated 07/24/16 Given influenza virus vaccine, inactivated 07/01/15 Given influenza virus vaccine, inactivated2 07/06/14 Given influenza virus vaccine, inactivated3 06/28/13 Given pneumococcal 13-valent vaccine 02/08/17 Given pneumococcal 23-valent vaccine4 07/16/08 Given 1Result Comment: done high dose. Migrated from OBS ; Data migrated from [employer] on 10/22/2015. 2Result Comment: fluzone high dose [[id number]]. Migrated from OBS ; Data migrated from [employer] on 10/22/2015. 3Result Comment: fluzone (>3 yrs.) [[id number]]. Migrated from OBS ; Data migrated from [employer] on 10/22/2015. 4Result Comment: pneumovax. Migrated from OBS ; Data migrated from [employer] on 10/22/2015. Procedures Procedure Date Related Diagnosis [...] 1Middle school not completed Assessment and Plan Extracted from: Title: Discharge Summary * Author: Jose Head MD Date: 02/10/17 Discharge Information Disposition to home Condition stable Medications: See med reconciliation form Discharge Plan Follow-up with general surgery and UPPP in 1 week In the event of any worsening symptoms patient was a come back to the ED for further evaluation Discharge summary took greater than 35 minutes Extracted from: Title: PO CHECK Author: Naga Hong Date: 02/09/17 DO Progress Note - Daily [facility] Completed: Thursday, FEBRUARY 09, 2017, 20:40 by Naga Hong DO RM: [address], [address] [id number] YULIYA O75y (: 1940) F Attending: Jose Head MDPhone: Service: Internal Medicine Reason for Admission: ACUTE CHOLECYSTITIS Working DRG: None Documented Code status: None Specified=FULL CODECurrent diet: Isolation: None Documented Allergies: NKDA SUBJECTIVE Pt in good spirits (+) Flatus Wnats diet advance OBJECTIVE Gen: Patient is in NAD: Good Historian. Alert and Orientated x 4 HEENT: NC/AT; PERRL, CV: S1 S2 Pulm: Breath sounds clear bilaterally Abd: Sounds present and active; Soft; Non Tender, Non distended; No rebound, no rigidity. : Deferred. Skin: No rashes, no signs of infection. Incisions c/d/i Ext: No deformities noted. Bilat pulses present upper and lower. Psyc: Normal Affect Neuro: No focal deficits Musk: No clubbing, cyanosis or edema 24hr Labs 02/09 0418 Glucose Zik879 H BUN10 Creatinine Lvl0.81 Sodium Jxe610 Potassium Lvl4.2 Chloride Xhf465 H CO223 L AGAP12.2 Calcium Lvl8.0 L eGFR71 WBC8.3 RBC3.40 L Hgb11.0 L Hct32.6 L MCV96.0 MCH32.3 H MCHC33.7 RDW14.9 H Jlgcktox342 MPV8.9 [place] still necessary (Yes/No): Line still necessary (Yes/No): VitalsTmp(F)[id number] 02/09 20:0098.093930/541094--- 02/09 16:57----11208/72-------- 02/09 15:5699.674013/020658--- 02/09 11:4598.680852/335595--- 02/09 07:1798.902812/463827--- 24 Hr Tmax: 99.3F (37.39c) at 02/09 15:56Vital Signs are the last 5 in the past 48 hours. DateWt(kg)Wt(lb)Ht(cm)Ht(in)Method 02/09 88.64 195.12008.40 60.00Estimated 02/07 (initial) 89.09 196.00Measured 54.94 61.00Estimated I&ORecordInOutBal 01/2324hr Tot 1520 0 1520 01/2224hr Tot 3356 50 3306 Medications (15) Active Scheduled Meds (1): 02/07/17 piperacillin-tazobactam + sodium chloride 0.9% INJ 100 mL (Zosyn + sodium chloride 0.9% INJ 100 mL) 3.375 gm IVPB ABXQ8H 25 ml/hr Unscheduled Meds: None PRN Meds (3): 02/07/17 acetaminophen 650 mg PO Q6H 02/07/17 hydromorphone (Dilaudid) 0.5 mg IVP Q3H 02/07/17 ondansetron 4 mg IVP Q6H One Time Meds (10): 02/08/17 (Discontinued) albuterol-ipratropium (albuterol-ipratropium 2.5-0.5 mg inhalation solution) 3 mL NEB ONCE (Completed) famotidine (famotidine (ANES)) IV ONCE (Completed) fentaNYL (fentaNYL (ANES)) IV ONCE (Completed) glycopyrrolate (glycopyrrolate (ANES)) IV ONCE (Completed) lidocaine (lidocaine (ANES)) IV ONCE (Completed) metoprolol (metoprolol (ANES)) IV ONCE (Completed) neostigmine (neostigmine (ANES)) IV ONCE (Completed) ondansetron (ondansetron (ANES)) IV ONCE (Completed) propofol (propofol (ANES)) IV ONCE (Completed) rocuronium (rocuronium (ANES)) IV ONCE Continuous Infusions (1): 02/08/17 D5NS + KCL 20mEq/L 1000ml (Premix) 1,000 mL 1,000 mL 50 ml/hr ASSESSMENT & EXAM POD # 1 Lap Cholecystecotomy Symptomatic Cholelithiasis PLAN & TREATMENT D/C in AM DIAGNOSES & PROBLEMS Ready for Discharge (Yes/No)? TEACHING ATTESTATION Extracted from: Title: General Surgery Consultation Author: Naga Hong Date: 02/07/17 DO Consultation [facility] Completed: Tuesday, FEBRUARY 07, 2017, 23:06 by Naga Hong DO RM: [address], [address] [id number] O75y (: 1940) F Attending: Jose Head [facility]: Service: Internal Medicine Reason for Admission: ACUTE CHOLECYSTITIS Working DRG: None Documented Code status: None Specified=FULL CODECurrent diet: Isolation: None Documented Allergies: NKDA Late Entry. Patient was seen at 1600 SUBJECTIVE 76 y/o F admitted for Symptomatic Cholelithiasis Pt is lithuanian speaking only; History obtained from H&P and via RN-biopharmaceutical rep Currently NPO for Lap Choleystectomy OBJECTIVE Gen: Patient is in NAD HEENT: NC/AT; PERRL, CV: S1 S2 Pulm: Breath sounds clear bilaterally Abd: Sounds present and active; Soft; MildTenderness RUQ, Obese; Non distended; No rebound, no rigidity. : Deferred. Skin: No rashes, no signs of infection Psyc: Normal Affect Neuro: No focal deficits Musk: No clubbing, cyanosis or edema 24hr Labs 02/07 2104 Troponin-I<0.02 02/07 0810 Glucose PNL209 H 02/07 0358 Sodium Lrb766 Potassium Lvl3.5 Chloride Ltt158 CO222 L AGAP13.5 Glucose Nol717 H Creatinine Lvl1.00 BUN30 H B/C Ratio30 H Total Protein6.9 Albumin Lvl3.3 L Globulin3.6 A/G Ratio0.9 Calcium Lvl8.9 ALT21 AST20 Alk Phos72 Bili Total0.3 eGFR55 Lipase Mhs144 Troponin-I<0.02 Lactic Acid Lvl1.7 WBC11.6 H RBC3.89 L Hgb12.4 Hct36.6 MCV94.2 MCH31.9 H MCHC33.8 RDW14.6 H Wumqibgf459 MPV8.5 Segs58.0 Monocytes8.4 Wgxcldsiyjs26.2 Eosinophils1.5 Basophils0.9 Segs-Bands #6.7 Lymphocytes #3.6 Monocytes #1.0 H Eosinophils #0.2 Basophils #0.1 [place] still necessary (Yes/No): Line still necessary (Yes/No): VitalsTmp(F)UiypyAHKSSsL1KTH6 02/07 16:[id number]/008430--- 02/07 12:[id number]/[id number]--- 02/07 08:4397.504837/699472--- 02/07 08:0597.536771/553772 2.0L/m 02/07 07:1097.471209/972218 2.0L/m 24 Hr Tmax: 98.2F (36.78c) at 02/07 12:00Vital Signs are the last 5 in the past 48 hours. DateWt(kg)Wt(lb)Ht(cm)Ht(in)Method 02/07 (initial) 89.09 196.00Measured 54.94 61.00Estimated I&ORecordInOutBal 01/2124hr Tot 706 0 706 01/2024hr Tot 1000 0 1000 Medications (11) Active Scheduled Meds (2): 02/07/17 piperacillin-tazobactam + sodium chloride 0.9% INJ 100 mL (Zosyn + sodium chloride 0.9% INJ 100 mL) 3.375 gm IVPB ABXQ8H 25 ml/hr 02/08/17 pneumococcal 13-valent vaccine 0.5 mL IM Daily Unscheduled Meds: None PRN Meds (3): 02/07/17 acetaminophen 650 mg PO Q6H 02/07/17 hydromorphone (Dilaudid) 0.5 mg IVP Q3H 02/07/17 ondansetron 4 mg IVP Q6H One Time Meds (5): 02/07/17 (Completed) Sodium Chloride 0.9% IV (NS (Bolus) IV) 1,000 mL IV ONCE 1,000 ml/hr 02/07/17 (Completed) morphine Sulfate 4 mg IVP ONCE 02/07/17 (Completed) morphine Sulfate 4 mg IVP ONCE 02/07/17 (Completed) ondansetron (Zofran) 4 mg IVP ONCE 02/07/17 (Completed) piperacillin-tazobactam (Zosyn) 3.375 gm IVPB ONCE Continuous Infusions (1): 02/07/17 D5NS + KCL 20mEq/L 1000ml (Premix) 1,000 mL 1,000 mL 75 ml/hr RADIOLOGY: Reviewed ASSESSMENT & EXAM Symptomatic Cholelithiasis SLE PLAN & TREATMENT Laparoscopic Cholecystectomy Medical Mngt for SLE. Discussed w Dr Head; No indication for Cardiac Clearance DIAGNOSES & PROBLEMS Ready for Discharge (Yes/No)? No ADDENDUM: Case was cancelled. It is urgent but not emergent in my opinion. I advised Patient it would be better to reschedule case for Wednesday AM / Noon They were in agreement A/P: Transfer back to floor. Start CLD. NPO p MN Extracted from: Title: General Admission H&P * Author: Jose Head MD Date: 02/07/17 Impression and Plan 1. Acute cholecystitis-imaging studies report above, general surgery consulted, IV pain control, n.p.o., IV fluids, IV Zosyn 2. Hypertension stable, continue same meds 3. Prophylaxis SCDs 4. Fluid electrolytes nutrients n.p.o., IV fluids 5. Disposition observation, general surgery consulted
--- OUTSIDE RECORDS SUMMARY | 2018-08-23 08:40 | XMS REPORT | Summary of Care ---
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 2Result Comment: fluzone high dose [[id number]]. Migrated from OBS ; Data migrated from [employer] on 10/22/2015. 3Result Comment: fluzone (>3 yrs.) [[id number]]. Migrated from OBS ; Data migrated from [employer] on 10/22/2015. 4Result Comment: pneumovax. Migrated from [...]
--- OUTSIDE RECORDS SUMMARY | 2018-08-23 08:40 | XMS REPORT | Summary of Care ---
Author Author [facility] Primary Care [facility] Organization [facility] Address Unknown Phone Unavailable Encounter HQ Eugenio(FIN) [id number] Date(s): 10/01/17 - 10/02/17 [facility] [address], [address] [place], [place] [address]- [phone] Vital Signs No data available for this [...] no reaction. 2Result Comment: fluzone high dose [[id number]]. Migrated from OBS ; Data migrated from [employer] on 10/22/2015. 3Result Comment: fluzone (>3 yrs.) [[id number]]. Migrated from OBS ; Data migrated from [...]
--- OUTSIDE RECORDS SUMMARY | 2018-08-23 08:40 | XMS REPORT | Summary of Care ---
Author Organization Unknown Address Unknown Phone Unavailable Encounter Dates Location Diagnoses Discharge Providers Disposition 11/07/2013 [facility] [address] Reason for Visit SCREENING MAMMOGRAM Problem List No data available for this section Allergies, Adverse Reactions, Alerts Status Substance Reaction Severity Active NKDA Medications No data available for this section Medications Administered During Your Visit No data available for this section Immunizations No data available for this section Social History Social History Type Response
--- OUTSIDE RECORDS SUMMARY | 2018-08-23 08:40 | XMS REPORT | Summary of Care ---
Author Author [facility] Primary Care [facility] Organization [facility] Address Unknown Phone Unavailable Encounter HQ Eugenio(FIN) [id number] Date(s): 08/19/17 - 08/20/17 [facility] [address], [address] [place], [place] [address]- [phone] Vital Signs No data available for this [...] Substance Reaction Severity Status NKDA Active Medications esomeprazole 40 mg oral delayed release capsule 40 mg=1 cap, PO, Daily, # 90 cap, 1 Refill(s), Pharmacy: [facility] Start Date: 08/19/17 Stop Date: 11/17/17 Status: Ordered Results No data available for [...] no reaction. 2Result Comment: fluzone high dose [[id number]]. Migrated from OBS ; Data migrated from [employer] on 10/22/2015. 3Result Comment: fluzone (>3 yrs.) [[id number]]. Migrated from OBS ; Data migrated from [employer] on 10/22/2015. 4Result Comment: done high dose. Migrated from OBS ; Data migrated from [employer] on 10/22/2015. 5Result Comment: pneumovax. Migrated from OBS ; Data migrated from [employer] on 10/22/2015. Procedures Procedure Date Related Diagnosis Body Site Laparoscopic cholecystectomy 02/08/17 Bone density scan1 12/08/16 Screening mammography2 12/08/16 Diabetic retinal eye exam 2017 Colonoscopy3 06/24/16 Colonoscopy4 03/15/11 1osteopenia of LS 2IMPRESSION: BENIGN There is [...]
--- OUTSIDE RECORDS SUMMARY | 2018-08-23 08:40 | XMS REPORT | Summary of Care ---
Author Organization Unknown Address Unknown Phone Unavailable Encounter HQ Encntr_juan carlos(DAX) [id number] Date(s): 03/30/14 - 03/30/14 [facility] [address] Discharge Disposition: Home Physician Attending: Dianne Vitale MD Physician_Referring: Dianne Vitale MD Reason for Visit OSTEO Problem List No data available for this section Allergies, Adverse Reactions, Alerts Substance Reaction Severity Status NKDA Active Medications No data available for this section Medications Administered During Your Visit No data available for this section Immunizations No data available for this section Social History Social History Type Response
--- OUTSIDE RECORDS SUMMARY | 2018-08-23 08:40 | XMS REPORT | Summary of Care ---
Author Author [facility] Organization [facility] Address Unknown Phone Unavailable Encounter MARLENE Becker(DAX) [id number] Date(s): 09/25/15 - 09/25/15 [facility] [address] [place] [address]- [phone] Discharge Disposition: Home Attending Physician: Dianne Vitale MD Referring Physician: Dianne Vitale MD Vital Signs No data available for this section Problem List Condition Effective Dates Status Health Status Informant Allergic contact 07/23/14 Active dermatitis1, 2 Benign hypertension Active with chronic kidney disease, stage III(Confirmed) Left breast Active mass(Confirmed) Screening for breast Active cancer(Confirmed) CKD [...] 02/16/15. 9Data migrated from [employer] on 5/30/15. Allergies, Adverse Reactions, Alerts Substance Reaction Severity [...]
--- OUTSIDE RECORDS SUMMARY | 2018-08-23 08:41 | XMS REPORT | Summary of Care ---
Author Author [facility] Organization [facility] Address Unknown Phone Unavailable Encounter MARLENE Becker(FIN) [id number] Date(s): 10/28/17 - 10/28/17 [facility] [address], [address] [place] [address]- [phone] Discharge Disposition: Home or Self Care Attending [...] no reaction. 2Result Comment: fluzone high dose [[id number]]. Migrated from OBS ; Data migrated from [employer] on 10/22/2015. 3Result Comment: fluzone (>3 yrs.) [[id number]]. Migrated from OBS ; Data migrated from [...]
--- OUTSIDE RECORDS SUMMARY | 2018-08-23 08:41 | XMS REPORT | Summary of Care ---
Author Author [facility] Organization [facility] Address Unknown Phone Unavailable Encounter HQ Eugenio(FIN) [id number] Date(s): 12/08/17 - 12/08/17 [facility] [address] [place] [address]- Encounter Diagnosis Encounter for screening mammogram for malignant neoplasm of breast (Final) - 12/09/17 Discharge Disposition: Home or Self Care Attending Physician: Dianne Vitale MD Referring Physician: Dianne Vitale MD Vital Signs No data available for this section Problem List Condition Effective Dates Status Health Status Informant Acute Resolved cholecystitis(Confir med) Benign hypertension Active with chronic kidney disease, stage III(Confirmed) Left breast Resolved mass(Confirmed) Screening for breast Active cancer(Confirmed) Chronic kidney 06/28/13 Active disease, stage 3(Confirmed)1 Gastroesophageal Active reflux disease2 Hemorrhoids(Confirme Active d) History of Active cholecystectomy(Conf irmed) 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 2Result Comment: fluzone high dose [[id number]]. Migrated from OBS ; Data migrated from [employer] on 10/22/2015. 3Result Comment: fluzone (>3 yrs.) [[id number]]. Migrated from OBS ; Data migrated from [employer] on 10/22/2015. 4Result Comment: done high dose. Migrated from OBS ; Data migrated from [employer] on 10/22/2015. 5Result Comment: pneumovax. Migrated from OBS ; Data migrated from [employer] on 10/22/2015. Procedures Procedure Date Related Diagnosis Body Site Status Screening mammography1 12/08/17 Completed Influenza vaccination 06/24/17 Completed Laparoscopic cholecystectomy 02/08/17 Completed Pneumococcal vaccination2 02/08/17 Completed Bone density scan3 12/08/16 Completed Screening mammography4 12/08/16 Completed Diabetic retinal eye exam 2016 Completed Colonoscopy5 06/24/16 Completed Pneumococcal vaccination6 07/16/12 Completed Colonoscopy7 03/15/11 Completed 1IMPRESSION: BENIGN RECOMMENDATION:There is no mammographic evidence of malignancy. A 1 year screeni ng mammogram is recommended.(12/09/2018) 2Prevnar-13 3osteopenia of LS 4IMPRESSION: BENIGN There is no mammographic evidence of malignancy. A 1 year screening mammogram i s recommended. 5diverticulosis, polyp in rectosigmoid colon 6Pneumovax 7hemorrhoids, diverticulosis, repeat in 5 years Social History Social History Type Response Substance Abuse Use: None. Exercise Exercise duration: 60. Exercise frequency: Daily. Exercise type: Walking. Employment/School Work/School description: Housewife.1 Alcohol Never Smoking Status Never smoker; Lives with someone who smokes; Cigarette Smoking Last 365 Days No; Reg Smoking Cessation Counseling No entered on: 02/25/18 1Middle school not completed Assessment and Plan No data available for this section
--- OUTSIDE RECORDS SUMMARY | 2018-08-23 08:41 | XMS REPORT | Summary of Care ---
Author Author [facility] Primary Care [facility] Organization [facility] Address Unknown Phone Unavailable Encounter HQ Apurva_juan carlos(FIN) [id number] Date(s): 02/25/18 - 02/25/18 [facility] [address], [address] [place] [address]- [phone] Discharge Disposition: Home or Self Care Attending Physician: Dianne Vitale MD Vital Signs Most recent to 1 oldest [Reference Range]: Height 157.48 cm (02/25/18 9:07 AM) Temperature Oral 97.0 DegF [96.4-99.1 DegF] (02/25/18 9:07 AM) Blood Pressure 147/57 mmHg [90-140/60-90 mmHg] *HI* (02/25/18 9:07 AM) Respiratory Rate 16 BRMIN [14-20 BRMIN] (02/25/18 9:07 AM) Peripheral Pulse 61 bpm Rate [60-100 bpm] (02/25/18 9:07 AM) Weight 92.273 kg (02/25/18 9:07 AM) Body Mass Index 37.21 m2 (02/25/18 9:07 AM) Problem List Condition Effective Dates Status [...] Substance Reaction Severity Status NKDA Active Medications Anusol-HC 2.5% rectal cream with applicator 1 appl, IA, BID, PRN rectal pain/itching, # 30 gm, 1 Refill(s), Pharmacy: [facility] [id number] Start Date: 02/25/18 Stop Date: 02/25/19 Status: Ordered Metoprolol Tartrate 50 mg oral tablet 50 mg=1 tab, PO, BID, # 180 tab, 1 Refill(s), Pharmacy: [id number] Start Date: 02/25/18 Stop Date: 08/24/18 Status: Ordered Results No data available for [...] no reaction. 2Result Comment: fluzone high dose [[id number]]. Migrated from OBS ; Data migrated from [employer] on 10/22/2015. 3Result Comment: fluzone (>3 yrs.) [[id number]]. Migrated from OBS ; Data migrated from [employer] on 10/22/2015. 4Result Comment: done high dose. Migrated from [employer] ; Data migrated from [employer] on 10/22/2015. 5Result Comment: pneumovax. Migrated from [employer] ; Data migrated from [employer] on 10/22/2015. Procedures Procedure Date Related Diagnosis [...]
--- OUTSIDE RECORDS SUMMARY | 2018-08-23 08:41 | XMS REPORT | Summary of Care ---
Author Author [facility] Primary Care [facility] Organization [facility] Address Unknown Phone Unavailable Encounter MARLENE Becker(FIN) [id number] Date(s): 12/30/17 - 12/31/17 [facility] [address], [address] [place] [address] [phone] Vital Signs No data available for this [...] Substance Reaction Severity Status NKDA Active Medications lisinopril 10 mg oral tablet 10 mg=1 tab, PO, Daily, # 90 tab, 2 Refill(s), Pharmacy: [id number] Start Date: 12/30/17 Stop Date: 03/30/18 Status: Ordered Results No data available for [...] no reaction. 2Result Comment: fluzone high dose [[id number]]. Migrated from OBS ; Data migrated from [employer] on 10/22/2015. 3Result Comment: fluzone (>3 yrs.) [[id number]]. Migrated from OBS ; Data migrated from [employer] on 10/22/2015. 4Result Comment: done high dose. Migrated from OBS ; Data migrated from [employer] on 10/22/2015. 5Result Comment: pneumovax. Migrated from OBS ; Data migrated from [employer] on 10/22/2015. Procedures Procedure Date Related Diagnosis [...]
[2018-08-23 11:35] VITALS: BP 144/83
== END | disposition home or self-care (01) ==
LOC: OR 08:36
PROVIDERS: ATTEND Ophthalmology
DX: H25.12 Age-related nuclear cataract, left eye (principal); E11.22 Type 2 diabetes mellitus with diabetic chronic kidney disease; I12.9 Hypertensive chronic kidney disease with stage 1 through stage 4 chronic kidney disease, or unspecified chronic kidney disease; N18.3 Chronic kidney disease, stage 3 (moderate); M19.90 Unspecified osteoarthritis, unspecified site; M32.9 Systemic lupus erythematosus, unspecified; K21.9 Gastro-esophageal reflux disease without esophagitis; M06.9 Rheumatoid arthritis, unspecified; H91.93 Unspecified hearing loss, bilateral; M81.0 Age-related osteoporosis without current pathological fracture; M47.816 Spondylosis without myelopathy or radiculopathy, lumbar region; M17.10 Unilateral primary osteoarthritis, unspecified knee; Z88.8 Allergy status to other drugs, medicaments and biological substances; Z68.36 Body mass index [BMI] 36.0-36.9, adult
CPT/HCPCS: 66984; J2250; V2632

== ENCOUNTER → 2018-09-06 | Day surgery (SDC) | payer MEDICARE ==
--- OUTSIDE RECORDS SUMMARY | 2018-09-06 11:06 | XMS REPORT | Continuity of Care Document ---
Author Author [facility] Interface Address Unknown Phone Unavailable Problems Problem Status Onset Date Classification Date Reported Comments Source DX: CLAUDICATION I73.9 Active 08/26/2018 [facility] ABD PAIN Active 07/23/2018 [facility] Encounter for screening mammogram for malignant neoplasm of breast 12/10/2017 03/16/2018 [facility] ROUTINE Active 11/10/2017 [facility] ACUTE CHOLECYSTITIS Active 02/07/2017 [facility] DX: SCREENING FOR BREAST CANCER Active 11/04/2016 [facility] UNK Active 06/11/2016 [facility] MASS OF RIGHT THIGH Active 11/12/2015 [facility] N63 Active 08/31/2015 [facility] Obesity<sup>5</sup> Active 11/09/2014 Problem 11/17/2015 Data migrated from [employer] on 03/27/15. [facility] Obesity<sup>6</sup> Active 11/09/2014 Problem 06/27/2016 Data migrated from [employer] on 03/27/15. [facility] Allergic contact dermatitis<sup>1, 2</sup> Resolved 07/23/2014 Problem 02/13/2017 Data migrated from [employer] on 02/16/15. [facility] Vitamin D deficiency<sup>9</sup> Active 07/06/2014 Problem 02/13/2017 Data migrated from [employer] on 02/16/15. [facility] Vitamin D deficiency<sup>6</sup> Active 07/06/2014 Problem 03/16/2018 Data migrated from [employer] on 02/16/15. [facility] Vitamin D deficiency<sup>10</sup> Active 07/06/2014 Problem 06/27/2016 Data migrated from [employer] on 02/16/15. [facility] OSTEO Active 03/27/2014 [facility] Osteopenia<sup>7</sup> Active 11/01/2013 Problem 02/13/2017 Data migrated from [employer] on 02/16/15. [facility] Osteopenia<sup>4</sup> Active 11/01/2013 Problem 03/16/2018 Data migrated from [employer] on 02/16/15. [facility] Osteopenia<sup>8</sup> Active 11/01/2013 Problem 06/27/2016 Data migrated from [employer] on 02/16/15. [facility] SCREENING MAMMOGRAM Active 10/02/2013 [facility] CKD stage 3, GFR 30-59 ml/min(<span ID="[id number]">Confirmed</span>)<sup>3</sup> Active 06/28/2013 Problem 02/13/2017 Data migrated from [employer] on 02/16/15. [facility] Osteoarthritis of knee<sup>6</sup> Active 06/28/2013 Problem 02/13/2017 Data migrated from [employer] on 02/16/15. [facility] Systemic lupus erythematosus<sup>8</sup> Active 06/28/2013 Problem 02/13/2017 Data migrated from [employer] on 02/16/15. [facility] Chronic kidney disease, stage 3<sup>1</sup> Active 06/28/2013 Problem 03/16/2018 Data migrated from [employer] on 02/16/15. [facility] Osteoarthritis of knee<sup>3</sup> Active 06/28/2013 Problem 03/16/2018 Data migrated from [employer] on 02/16/15. [facility] Systemic lupus erythematosus<sup>5</sup> Active 06/28/2013 Problem 03/16/2018 Data migrated from [employer] on 02/16/15. [facility] CKD stage 3, GFR 30-59 ml/min<sup>3</sup> Active 06/28/2013 Problem 06/27/2016 Data migrated from [employer] on 02/16/15. [facility] Osteoarthritis of knee<sup>7</sup> Active 06/28/2013 Problem 06/27/2016 Data migrated from [employer] on 02/16/15. [facility] Systemic lupus erythematosus<sup>9</sup> Active 06/28/2013 Problem 06/27/2016 Data migrated from [employer] on 02/16/15. [facility] SCREENING Active 09/26/2012 [facility] RUQ PAIN Active 05/31/2012 [facility] ROUTINE SCREENING Active 10/15/2011 [facility] Dermatitis Active Problem 02/03/2018 [facility] Heel pain Active Problem 02/03/2018 [facility] Right hip pain Active Problem 02/03/2018 [facility] Suprapubic pain Active Problem 02/03/2018 [facility] Lumbago Active Problem 02/03/2018 [facility] Benign hypertension with chronic kidney disease, stage III Active Problem 02/13/2017 [facility] Left breast mass Resolved Problem 03/16/2018 [facility] Screening for breast cancer Active Problem 03/16/2018 [facility] Gastroesophageal reflux disease<sup>4</sup> Active Problem 02/13/2017 Data migrated from [employer] on 02/16/15. [facility] History of lupus Resolved Problem 02/13/2017 [facility] Degenerative joint disease of lumbar spine(<span ID="[id number]">Confirmed</span>) Active Problem 03/16/2018 [facility] Mass of right thigh<sup>5</sup> Resolved Problem 02/13/2017 Ruled out [facility] Osteoporosis Active Problem 03/16/2018 [facility] Screening for glaucoma Active Problem 02/13/2017 [facility] Screening for diabetic retinopathy Active Problem 03/16/2018 [facility] Screening for colon cancer Active Problem 03/16/2018 [facility] Rheumatoid arthritis with positive rheumatoid factor Active Problem 03/16/2018 [facility] Lupus Resolved Problem 02/13/2017 [facility] Type 2 diabetes with stage 3 chronic kidney disease GFR 30-59 Active Problem 02/13/2017 [facility] Type 2 diabetes mellitus with diabetic polyneuropathy Active Problem 02/13/2017 [facility] Acute cholecystitis Resolved Problem 03/16/2018 [facility] Benign hypertension with chronic kidney disease, stage III Active Problem 03/16/2018 [facility] Gastroesophageal reflux disease<sup>2</sup> Active Problem 03/16/2018 Data migrated from [employer] on 02/16/15. [facility] Hemorrhoids Active Problem 03/16/2018 [facility] History of cholecystectomy Active Problem 03/16/2018 [facility] Medicare annual wellness visit, subsequent Active Problem 03/16/2018 [facility] Type 2 diabetes mellitus with stage 3 chronic kidney disease Active Problem 03/16/2018 [facility] Encounter for immunization Active Problem 03/16/2018 [facility] Peripheral neuropathy Active Problem 06/27/2016 [facility] Type 2 diabetes mellitus, controlled, with renal complications Active Problem 06/27/2016 [facility] Mass of right thigh Active Problem 11/17/2015 [facility] History of colon polyps Active Problem 06/27/2016 [facility] Hypertension Active Problem 06/27/2016 [facility] SCREEN MAMMOGRAM NEC Active [facility] ABDMNAL PAIN RT UPR QUAD Active [facility] Datatype(DG1.4)- Active [facility] ENCNTR SCREEN MAMMOGRAM FOR MALIGNANT NE Active [facility] DISORDER OF BONE DENSITY AND STRUCTURE, Active [facility] OTH DISRD OF BONE DENSITY AND STRUCTURE, Active [facility] CONTUSION OF RIGHT THIGH, SEQUELA Active [facility] AGE-RELATED OSTEOPOROSIS W/O CURRENT PAT Active [facility] ACUTE CHOLECYSTITIS Active [facility] Medications Medication Details Route Status Patient Instructions Ordering Provider Order Date Source Hydrocortisone 25 MG/ML Topical Cream [Anusol HC] 1 appl, MA, BID, PRN rectal pain/itching, # 30 gm, 1 Refill(s), Pharmacy: [facility] [id number] Active 02/25/2018 [facility] Metoprolol Tartrate 50 mg oral tablet 50 mg=1 tab, PO, BID, # 180 tab, 1 Refill(s), [id number] Active 02/25/2018 [facility] lisinopril 10 mg oral tablet 10 mg=1 tab, PO, Daily, # 90 tab, 2 Refill(s), [facility] [id number] Active 12/30/2017 [facility] Esomeprazole 40 MG Enteric Coated Capsule 40 mg=1 cap, PO, Daily, # 90 cap, 1 Refill(s), Pharmacy: [facility] [id number] Active 08/19/2017 [facility] Metronidazole 500 MG Oral Tablet [Flagyl] 500 mg=1 tab, PO, Q8H, X 7 day, # 21 tab, 0 Refill(s) Active 02/09/2017 [facility] Levofloxacin 500 MG Oral Tablet [Levaquin] 500 mg=1 tab, PO, Q24H, X 7 day, # 7 tab, 0 Refill(s) Active 02/09/2017 [facility] Acetaminophen 300 MG / Codeine Phosphate 30 MG Oral Tablet [Tylenol with Codeine #3] 1 tab, PO, Q6H, PRN Pain, # 20 tab, 0 Refill(s) Active 02/09/2017 [facility] D5NS + KCL 20mEq/L 1000ml (Premix) 1,000 mL 1,000 mL, Rate: 50 ml/hr, Infuse over: 20 hr, Route: IV, Dosing Weight 88.636 kg, Total Volume: 1,000, Start date: 02/08/17 19:08:00 CDT, Duration: 30 day, Stop date: 03/10/17 19:07:00 CDTNotes: PREMIX IV - Do Not Alter WASTE: F/P - Sink; E - Municipal Trash Bin No Longer Active 02/09/2017 [facility] ondansetron (ANES) Route: IV, Drug form: INJ, ONCE, Stop date: 02/08/17 14:30:00 CDT Inactive 02/08/2017 [facility] neostigmine (ANES) Route: IV, Drug form: INJ, ONCE, Stop date: 02/08/17 14:30:00 CDT Inactive 02/08/2017 [facility] glycopyrrolate (ANES) Route: IV, Drug form: INJ, ONCE, Stop date: 02/08/17 14:30:00 CDT Inactive 02/08/2017 [facility] metoprolol (ANES) Route: IV, Drug form: INJ, ONCE, Stop date: 02/08/17 14:12:00 CDT Inactive 02/08/2017 [facility] famotidine (ANES) Route: IV, Drug form: INJ, ONCE, Stop date: 02/08/17 14:07:00 CDT Inactive 02/08/2017 [facility] rocuronium (ANES) Route: IV, Drug form: INJ, ONCE, Stop date: 02/08/17 14:07:00 CDT Inactive 02/08/2017 [facility] fentaNYL (ANES) Route: IV, Drug form: INJ, ONCE, Stop date: 02/08/17 14:02:00 CDT Inactive 02/08/2017 [facility] propofol (ANES) Route: IV, Drug form: INJ, ONCE, Stop date: 02/08/17 14:02:00 CDT Inactive 02/08/2017 [facility] lidocaine (ANES) Route: IV, Drug form: INJ, ONCE, Stop date: 02/08/17 13:57:00 CDT Inactive 02/08/2017 [facility] LR 1000 mL INJ (ANES) Route: IV, Total Volume: 1,000, Start date: 02/08/17 12:55:00 CDT, Stop date: 02/08/17 13:55:00 CDT Inactive 02/08/2017 [facility] Albuterol 0.833 MG/ML / Ipratropium [place] 0.167 MG/ML Inhalant Solution 3 mL, Route: NEB, Dosing Weight 88.636, kg, ONCE, STAT, Start date: 02/08/17 10:32:00 CDT, Stop date: 02/08/17 10:32:00 CDT Inactive 02/08/2017 [facility] Calcium Chloride 0.0014 MEQ/ML / Potassium Chloride 0.004 MEQ/ML / Sodium Chloride 0.103 MEQ/ML / Sodium Lactate 0.028 MEQ/ML Injectable Solution 1,000 mL, Rate: 25 ml/hr, Infuse over: 40 hr, Route: IV, Dosing Weight 88.636 kg, Total Volume: 1,000, Start date: 02/08/17 10:32:00 CDT, Duration: 30 day, Stop date: 03/10/17 10:31:00 CDT Inactive 02/08/2017 [facility] Streptococcus pneumoniae serotype 1 capsular antigen diphtheria [id number] protein conjugate vaccine / Streptococcus pneumoniae serotype 14 capsular antigen diphtheria [id number] protein conjugate vaccine / Streptococcus pneumoniae serotype 18C capsular antigen d 0.5 mL, Route: IM, Drug Form: INJ, Daily, Start date: 02/08/17 9:00:00 CDT, Stop date: 02/08/17 17:00:00 CDTNotes: Shake well prior to use (Same as: Prevnar 13) Inactive 02/08/2017 [facility] Hydroxychloroquine 400 mg, PO, Daily, 0 Refill(s) Active 02/07/2017 [facility] Zosyn 3.375 gm, Route: IVPB, ABXQ8H, Dosing Weight 88.636, kg, CrCl >=20 ml/min infuse over 4 hours, Start date: 02/07/17 17:00:00 CDT, Duration: 7 day, Stop date: 02/14/17 9:00:00 CDT, ABX Indication: Intra- abdominal InfectionNotes: (Same as: Zosyn) Dosing based on Piperacillin component MEDICATION WASTE Product Size: 3375 mg Product Wasted: ___ mg No Longer Active 02/07/2017 [facility] Lisinopril 10 mg, PO, Daily, 0 Refill(s) Active 02/07/2017 [facility] D5NS + KCL 20mEq/L 1000ml (Premix) 1,000 mL 1,000 mL, Rate: 75 ml/hr, Infuse over: 13.3 hr, Route: IV, Dosing Weight 89.091 kg, Total Volume: 1,000, Start date: 02/07/17 8:57:00 CDT, Duration: 30 day, Stop date: 03/09/17 8:56:00 CDTNotes: PREMIX IV - Do Not Alter WASTE: F/P - Sink; E - Municipal Trash Bin No Longer Active 02/07/2017 [facility] Dilaudid 0.5 mg, 0.5 mL, Route: IVP, Drug form: INJ, Q3H, Dosing Weight 89.091, kg, PRN Pain Score 7-10, Start date: 02/07/17 8:56:00 CDT, Duration: 30 day, Stop date: 03/09/17 8:55:00 CDT No Longer Active 02/07/2017 [facility] Ondansetron 4 mg, 2 mL, Route: IVP, Drug form: INJ, Q6H, Dosing Weight 89.091, kg, PRN Nausea & Vomiting, Start date: 02/07/17 8:56:00 CDT, Duration: 30 day, Stop date: 03/09/17 8:55:00 CDTNotes: (Same as: Zofran) MEDICATION WASTE Product Size: 4 mg Product Wasted: ___ mg No Longer Active 02/07/2017 [facility] Acetaminophen 650 mg, 2 tab, Route: PO, Drug form: TAB, Q6H, Dosing Weight 89.091, kg, PRN Pain 1-3/Temp > 100.4 F, Start date: 02/07/17 8:56:00 CDT, Duration: 30 day, Stop date: 03/09/17 8:55:00 CDTNotes: Do not exceed 4 gm/day. (Same as: Tylenol) No Longer Active 02/07/2017 [facility] Zosyn 3.375 gm, Route: IVPB, ONCE, Dosing Weight 89.091, kg, Priority: STAT, Start date: 02/07/17 7:32:00 CDT, Duration: 1 doses or times, Stop date: 02/07/17 7:32:00 CDT, ABX Indication: Intra-abdominal I nfection Inactive 02/07/2017 [facility] Morphine 4 mg, Route: IVP, ONCE, Dosing Weight 89.091, kg, Priority: STAT, Start date: 02/07/17 6:11:00 CDT, Stop date: 02/07/17 6:11:00 CDT Inactive 02/07/2017 [facility] Sodium Chloride 0.154 MEQ/ML Injectable Solution 1,000 mL, 1,000 ml/hr, Infuse Over: 1 hr, Route: IV, ONCE, Priority: STAT, Dosing Weight 89.091 kg, Start date: 02/07/17 3:28:00 CDT, Duration: 1 doses or times, Stop date: 02/07/17 3:28:00 CDT Inactive 02/07/2017 [facility] Zofran 4 mg, Route: IVP, Drug form: INJ, ONCE, Dosing Weight 89.091, kg, Priority: STAT, Start date: 02/07/17 3:28:00 CDT, Stop date: 02/07/17 3:28:00 CDT Inactive 02/07/2017 [facility] Morphine 4 mg, Route: IVP, ONCE, Dosing Weight 89.091, kg, Priority: STAT, Start date: 02/07/17 3:28:00 CDT, Stop date: 02/07/17 3:28:00 CDT Inactive 02/07/2017 [facility] Albuterol 0.833 MG/ML / Ipratropium [place] 0.167 MG/ML Inhalant Solution 3 mL, NEB, ONCE, 0 Refill(s) Active 06/24/2016 [facility] Albuterol 0.833 MG/ML / Ipratropium [place] 0.167 MG/ML Inhalant Solution 3 mL, Route: NEB, Drug Form: SOLN, Dosing Weight 92.273, kg, ONCE, STAT, Start date: 06/24/16 9:21:00 CDT, Stop date: 06/24/16 9:21:00 CDTNotes: (Same as: Leila) Inactive 06/24/2016 [facility] Sodium Chloride 0.154 MEQ/ML Injectable Solution 500 mL, Rate: 25 ml/hr, Infuse over: 20 hr, Route: IV, Dosing Weight 92.273 kg, Total Volume: 500, Start date: 06/24/16 9:21:00 CDT, Duration: 1 day, Stop date: 06/25/16 9:20:00 CDT Inactive 06/24/2016 [facility] Aspirin 81 MG Enteric Coated Tablet 81 mg=1 tab, PO, Daily, # 90 tab, 3 Refill(s) No Longer Active 06/22/2016 [facility] Vitamin B12 =1 mL, PO, Daily, 0 Refill(s) Active 06/22/2016 [facility] Alendronic acid 70 MG Oral Tablet 2 tabs, PO, 0 Refill(s) Active 06/22/2016 [facility] Esomeprazole 40 MG Enteric Coated Capsule [Nexium] 40 mg=1 cap, PO, Daily, # 30 cap, 0 Refill(s) Active 06/22/2016 [facility] Hydroxychloroquine Sulfate 200 MG Oral Tablet 400 mg=2 tab, PO, Daily, # 60 tab, 0 Refill(s) Active 06/22/2016 [facility] leflunomide 10 mg oral tablet 10 mg=1 tab, PO, Daily, # 30 tab, 0 Refill(s) Active 06/22/2016 [facility] Allergies, Adverse Reactions, Alerts Substance Category Reaction Severity Reaction type Status Date Reported Comments Source Immunizations Immunization Date Given Site Status Last Updated Comments Source influenza virus vaccine, inactivated<sup>1</sup> 06/24/2017 Left Deltoid completed [facility] Result Comment: Patient waited 15 min with no reaction. [facility] pneumococcal 13-valent vaccine 02/08/2017 Right deltoid completed [facility] influenza virus vaccine, inactivated 07/24/2016 Left Deltoid completed [facility] influenza virus vaccine, inactivated 07/01/2015 Left deltoid completed [facility] Hx influenza vaccine-unspecified<sup>1</sup> 07/06/2014 completed [facility] Result Comment: done high dose. Migrated from OBS ; Data migrated from [employer] on 10/22/2015. [facility] Hx influenza vaccine-unspecified<sup>4</sup> 07/06/2014 completed [facility] Result Comment: done high dose. Migrated from OBS ; Data migrated from [employer] on 10/22/2015. [facility] influenza virus vaccine, inactivated<sup>2</sup> 07/06/2014 Right Deltoid completed [facility] Result Comment: fluzone high dose [[id number]]. Migrated from OBS ; Data migrated from [employer] on 10/22/2015. [facility] influenza virus vaccine, inactivated<sup>3</sup> 06/28/2013 Left Deltoid completed [facility] Result Comment: fluzone (>3 yrs.) [[id number]]. Migrated from OBS ; Data migrated from [employer] on 10/22/2015. [facility] pneumococcal 23-valent vaccine<sup>4</sup> 07/16/2008 completed [facility] Result Comment: pneumovax. Migrated from OBS ; Data migrated from [employer] on 10/22/2015. [facility] pneumococcal 23-valent vaccine<sup>5</sup> 07/16/2008 completed [facility] Result Comment: pneumovax. Migrated from OBS ; Data migrated from [employer] on 10/22/2015. [facility] Results Order Name Results Value Reference Range Date Interpretation Comments Source Ext Lower Arterial bilat w pressure US Ext Lower Arterial bilat w pressure US Please refer to heart lab report, located under Vascular in [facility]. 09/02/2018 - - Electronically Signed by: Irvin Velasco RT 09/02/18 12:44 FINAL REPORT [facility] Hip 2/3 views uni w pelvis DX Hip 2/3 views uni w pelvis DX Patient Name: YULIYA POLLOCK : 1940; Age: 78 years Female MR: [id number] Study: Hip 2/3 views uni w pelvis [...] Neftali Faust MD 07/23/18 21:32 FINAL REPORT [facility] ED Abdomen/Pelvis IV contrast only CT [...] Dash Almanza MD 07/23/18 19:39 FINAL REPORT [facility] Breast Mammo Scrn ALEXY incl CAD MA Breast Mammo Scrn ALEXY incl CAD MA BILATERAL DIGITAL SCREENING MAMMOGRAM WITH CAD: 12/08/2017 CLINICAL: /Routine. Current study was evaluated with a Computer Aided Detection (CAD) system. COMPARISON:Comparison is made to exams dated: 12/08/2016 mammogram, 09/25/2015 mammogram, 11/07/2013 mammogram, 11/01/2012 mammogram, 10/29/2010 mammogram, and 10/30/2011 mammogram - [facility]. TECHNIQUE: Mammographic views were obtained using digital acquisition. [employer] Version 1.3 was utilized for computer aided [...] is recommended.(12/09/2018) This exam was interpreted at [id number] for [facility]. Stephie valdez/pensai:12/09/2017 07:58:52 Engineer Process(s): Anila Rousseau [facility] letter sent: BI-RADS 1/2 Mammogram BI-RADS: 2 Benign 12/08/2017 - - Read by: Stephie Gutierrez MD Dictated Date/time: 12/09/17 07:58 Electronically Signed by: Stephie Gutierrez MD 12/09/17 07:58 FINAL REPORT [facility] CHEM PANEL Bili Direct 0.1 mg/dL 0.0 - 0.3 02/10/2017 [facility] CHEM PANEL Bili Total 0.5 mg/dL 0.2 - 1.3 02/10/2017 [facility] CHEM PANEL AST 31 unit/L 0 - 37 02/10/2017 [facility] CHEM PANEL Alk Phos 62 unit/L 39 - 136 02/10/2017 [facility] CHEM PANEL Albumin Lvl 2.4 g/dL 3.5 - 5.0 02/10/2017 [facility] CHEM PANEL ALT 37 unit/L 0 - 65 02/10/2017 [facility] CHEM PANEL Total Protein 5.1 g/dL 6.4 - 8.4 02/10/2017 [facility] CHEM PANEL Globulin 2.7 g/dL 2.7 - 4.2 02/10/2017 [facility] CHEM PANEL A/G Ratio 0.9 0.7 - 1.6 02/10/2017 [facility] CHEM PANEL Bili Indirect 0.4 mg/dL 0.0 - 1.0 02/10/2017 [facility] HEMATOLOGY Eosinophils # 0.2 K/CMM 0.0 - 0.5 02/10/2017 [facility] HEMATOLOGY Segs 68.2 % 45.0 - 75.0 02/10/2017 [facility] HEMATOLOGY Monocytes 8.5 % 2.0 - 12.0 02/10/2017 [facility] HEMATOLOGY Lymphocytes 20.4 % 20.0 - 40.0 02/10/2017 [facility] HEMATOLOGY Eosinophils 2.3 % 0.0 - 4.0 02/10/2017 [facility] HEMATOLOGY Basophils 0.6 % 0.0 - 1.0 02/10/2017 [facility] HEMATOLOGY Segs-Bands # 4.6 K/CMM 1.5 - 8.1 02/10/2017 [facility] HEMATOLOGY Monocytes # 0.6 K/CMM 0.0 - 0.8 02/10/[address] [facility] Lymphocytes # 1.4 K/CMM 1.0 - 5.5 02/10/2017 [facility] HEMATOLOGY RBC 3.24 M/CMM 4.20 - 5.40 02/10/2017 [facility] HEMATOLOGY MCV 95.6 fL 80.0 - 98.0 02/10/2017 [facility] HEMATOLOGY Hct 30.9 % 36.0 - 48.0 02/10/2017 [facility] HEMATOLOGY MCH 32.2 pg 27.0 - 31.0 02/10/[address] [facility] MCHC 33.6 g/dL 32.0 - 36.0 02/10/2017 [facility] HEMATOLOGY RDW 14.7 % 11.5 - 14.5 02/10/2017 [facility] HEMATOLOGY Platelet 170 K/CMM 133 - 450 02/10/2017 [facility] HEMATOLOGY MPV 8.0 fL 7.4 - 10.4 02/10/[address] [facility] WBC 6.7 K/CMM 3.7 - 10.4 02/10/[address] [facility] Hgb 10.4 g/dL 12.0 - 16.0 02/10/2017 [facility] CHEM PANEL eGFR 71 mL/min/1.73m2 02/09/2017 [...] should be multiplied by the estimated BMI. [facility] CHEM PANEL BUN 10 mg/dL 7 - 22 02/09/2017 [facility] CHEM PANEL Glucose Lvl 107 mg/dL 70 - 99 02/09/2017 [facility] CHEM PANEL Creatinine Lvl 0.81 mg/dL 0.50 - 1.40 02/09/2017 [facility] CHEM PANEL Potassium Lvl 4.2 meq/L 3.5 - 5.1 02/09/2017 [facility] CHEM PANEL Sodium Lvl 142 meq/L 135 - 145 02/09/2017 [facility] CHEM PANEL Chloride Lvl 111 meq/L 95 - 109 02/09/2017 [facility] CHEM PANEL CO2 23 meq/L 24 - 32 02/09/2017 [facility] CHEM PANEL Calcium Lvl 8.0 mg/dL 8.5 - 10.5 02/09/2017 [facility] CHEM PANEL AGAP 12.2 meq/L 10.0 - 20.0 02/09/2017 [facility] HEMATOLOGY MPV 8.9 fL 7.4 - 10.4 02/09/2017 [facility] HEMATOLOGY MCV 96.0 fL 80.0 - 98.0 02/09/2017 [facility] HEMATOLOGY MCHC 33.7 g/dL 32.0 - 36.0 02/09/2017 [facility] HEMATOLOGY Hct 32.6 % 36.0 - 48.0 02/09/2017 [facility] HEMATOLOGY MCH 32.3 pg 27.0 - 31.0 02/09/2017 [facility] HEMATOLOGY RDW 14.9 % 11.5 - 14.5 02/09/2017 [facility] HEMATOLOGY Platelet 187 K/CMM 133 - 450 02/09/2017 [facility] HEMATOLOGY WBC 8.3 K/CMM 3.7 - 10.4 02/09/2017 [facility] HEMATOLOGY Hgb 11.0 g/dL 12.0 - 16.0 02/09/2017 [facility] HEMATOLOGY RBC 3.40 M/CMM 4.20 - 5.40 02/09/2017 [facility] CARDIAC ENZYMES Troponin-I null 0.00 - 0.40 02/08/2017 [facility] CHEM PANEL eGFR 73 mL/min/1.73m2 02/08/2017 [...] should be multiplied by the estimated BMI. [facility] CHEM PANEL Bili Total 0.4 mg/dL 0.2 - 1.3 02/08/2017 [facility] CHEM PANEL AST 31 unit/L 0 - 37 02/08/2017 [facility] CHEM PANEL Alk Phos 61 unit/L 39 - 136 02/08/2017 [facility] CHEM PANEL Chloride Lvl 112 meq/L 95 - 109 02/08/2017 [facility] CHEM PANEL Total Protein 5.6 g/dL 6.4 - 8.4 02/08/2017 [facility] CHEM PANEL Calcium Lvl 7.6 mg/dL 8.5 - 10.5 02/08/2017 [facility] CHEM PANEL CO2 22 meq/L 24 - 32 02/08/2017 [facility] CHEM PANEL ALT 32 unit/L 0 - 65 02/08/2017 [facility] CHEM PANEL Albumin Lvl 2.5 g/dL 3.5 - 5.0 02/08/2017 [facility] CHEM PANEL BUN 14 mg/dL 7 - 22 02/08/2017 [facility] CHEM PANEL Potassium Lvl 4.1 meq/L 3.5 - 5.1 02/08/2017 [facility] CHEM PANEL Creatinine Lvl 0.79 mg/dL 0.50 - 1.40 02/08/2017 [facility] CHEM PANEL Sodium Lvl 142 meq/L 135 - 145 02/08/2017 [facility] CHEM PANEL Glucose Lvl 115 mg/dL 70 - 99 02/08/2017 [facility] CHEM PANEL A/G Ratio 0.8 0.7 - 1.6 02/08/2017 [facility] CHEM PANEL Globulin 3.1 g/dL 2.7 - 4.2 02/08/2017 [facility] CHEM PANEL AGAP 12.1 meq/L 10.0 - 20.0 02/08/2017 [facility] CHEM PANEL B/C Ratio 18 6 - 25 02/08/2017 [facility] CHEM PANEL Magnesium Lvl 1.9 mg/dL 1.8 - 2.4 02/08/2017 [facility] HEMATOLOGY Segs-Bands # 4.3 K/CMM 1.5 - 8.1 02/08/2017 [facility] HEMATOLOGY Lymphocytes # 1.2 K/CMM 1.0 - 5.5 02/08/2017 [facility] HEMATOLOGY Basophils 0.7 % 0.0 - 1.0 02/08/2017 [facility] HEMATOLOGY Eosinophils # 0.2 K/CMM 0.0 - 0.5 02/08/2017 [facility] HEMATOLOGY Monocytes # 0.5 K/CMM 0.0 - 0.8 02/08/2017 [facility] HEMATOLOGY Eosinophils 2.7 % 0.0 - 4.0 02/08/2017 [facility] HEMATOLOGY Segs 69.3 % 45.0 - 75.0 02/08/2017 [facility] HEMATOLOGY Monocytes 8.2 % 2.0 - 12.0 02/08/2017 [facility] HEMATOLOGY Lymphocytes 19.1 % 20.0 - 40.0 02/08/2017 [facility] HEMATOLOGY MCV 95.4 fL 80.0 - 98.0 02/08/2017 [facility] HEMATOLOGY MCH 32.6 pg 27.0 - 31.0 02/08/[address] [facility] Hct 32.1 % 36.0 - 48.0 02/08/[address] [facility] MCHC 34.1 g/dL 32.0 - 36.0 02/08/[address] [facility] RDW 14.8 % 11.5 - 14.5 02/08/[address] [facility] Platelet 189 K/CMM 133 - 450 02/08/[address] [facility] RBC 3.37 M/CMM 4.20 - 5.40 02/08/[address] [facility] Hgb 11.0 g/dL 12.0 - 16.0 02/08/[address] [facility] MPV 8.0 fL 7.4 - 10.4 02/08/[address] [facility] WBC 6.2 K/CMM 3.7 - 10.4 02/08/2017 [facility] CARDIAC ENZYMES Troponin-I null 0.00 - 0.40 02/08/2017 [facility] CARDIAC ENZYMES Troponin-I null 0.00 - 0.40 02/07/2017 [facility] CHEM PANEL Lactic Acid Lvl 1.7 mMol/L 0.5 - 2.2 02/07/2017 [facility] CHEM PANEL Lipase Lvl 209 unit/L 73 - 393 02/07/2017 [facility] CHEM PANEL eGFR 55 mL/min/1.73m2 02/07/2017 [...] should be multiplied by the estimated BMI. [facility] CHEM PANEL AST 20 unit/L 0 - 37 02/07/2017 [facility] CHEM PANEL CO2 22 meq/L 24 - 32 02/07/2017 [facility] CHEM PANEL Alk Phos 72 unit/L 39 - 136 02/07/2017 [facility] CHEM PANEL Bili Total 0.3 mg/dL 0.2 - 1.3 02/07/2017 [facility] CHEM PANEL ALT 21 unit/L 0 - 65 02/07/2017 [facility] CHEM PANEL Calcium Lvl 8.9 mg/dL 8.5 - 10.5 02/07/2017 [facility] CHEM PANEL Albumin Lvl 3.3 g/dL 3.5 [...] AGAP 13.5 meq/L 10.0 - 20.0 02/07/2017 [facility] CHEM PANEL B/C Ratio 30 6 - 25 02/07/2017 [facility] CHEM PANEL Globulin 3.6 g/dL 2.7 - 4.2 02/07/2017 [facility] CHEM PANEL A/G Ratio 0.9 0.7 - 1.6 02/07/2017 [facility] HEMATOLOGY Monocytes # 1.0 K/CMM 0.0 - 0.8 02/07/2017 [facility] HEMATOLOGY Lymphocytes # 3.6 K/CMM 1.0 - 5.5 02/07/2017 [facility] HEMATOLOGY Basophils # 0.1 K/CMM 0.0 - 0.2 02/07/2017 [facility] HEMATOLOGY Eosinophils # 0.2 K/CMM 0.0 - 0.5 02/07/2017 [facility] HEMATOLOGY Basophils 0.9 % 0.0 - 1.0 02/07/2017 [facility] HEMATOLOGY Lymphocytes 31.2 % 20.0 - 40.0 02/07/2017 [facility] HEMATOLOGY Segs 58.0 % 45.0 - 75.0 02/07/2017 [facility] HEMATOLOGY Eosinophils 1.5 % 0.0 - 4.0 02/07/2017 [facility] HEMATOLOGY Monocytes 8.4 % 2.0 - 12.0 02/07/2017 [facility] HEMATOLOGY Segs-Bands # 6.7 K/CMM 1.5 - 8.1 02/07/2017 [facility] Renal Stone CT Renal Stone CT Clinical Indication: CT DLP: 1134.91 MGY-CM - RLQ pain/Reports 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 Pt denies N/V/D, fever or chills. PMH [...] Ovidio Cross MD 02/07/17 06:32 FINAL REPORT [facility] Abdomen RUQ US Abdomen RUQ US [...] ultrasound abnormalities of the right upper quadrant. ZI- 02/07/2017 - - Read by: Roderick Caldwell MD Dictated Date/time: 02/07/17 04:41 Electronically Signed by: Roderick Caldwell MD 02/07/17 04:42 FINAL REPORT [facility] Chest 1view DX Chest 1view DX [...] pulmonary vascular congestion versus nonspecific airspace infiltrate. SL: YURIY- 02/07/2017 - - Read by: Ricardo Donohue DO Dictated Date/time: 02/07/17 04:20 Electronically Signed by: Ricardo Donohue DO 02/07/17 04:21 FINAL REPORT [facility] Breast Mammo Scrn ALEXY incl CAD MA Breast Mammo Scrn ALEXY incl CAD MA - BREAST MAMMO SCRN ALEXY INCL CAD MA BILATERAL DIGITAL SCREENING MAMMOGRAM WITH CAD: 12/08/2016 CLINICAL: Routine. Current study was evaluated with a Computer Aided Detection (CAD) system. Comparison is made to exams dated: 09/25/2015 mammogram, 11/07/2013 mammogram, 11/01/2012 mammogram, 10/30/2011 mammogram, 10/29/2010 mammogram and 10/29/2009 mammogram - [facility]. The tissue of both breasts [...] screening mammogram is recommended. Stephie marst/penrad:12/09/2016 08:09:42 Engineer Process: Pura Patel, [facility] This exam was dictated and interpreted by [id number] for [facility] Breast [place]. letter sent: Normal exam Mammogram BI-RADS: 2 Benign 12/08/2016 - - Read by: Stephie Gutierrez MD Dictated Date/time: 12/09/16 08:09 Electronically Signed by: Stephie Gutierrez MD 12/09/16 08:09 FINAL REPORT [facility] Bone Density Scan Bone Density Scan Patient Name: YULIYA POLLOCK : 1940; Age: 76 years y/o Female MR: [id number] Study: Bone Density Scan 12/08/2016 3:14 PM [...] standard deviations below peak bone mass. SL: [id number] 12/08/2016 - - Read by: Roderick Piper MD Dictated Date/time: 12/08/16 15:28 Electronically Signed by: Roderick Piper MD 12/08/16 15:29 FINAL REPORT [facility] Ext Lower non vascular US Ext [...] in the right groin soft tissues. SL: [id number] 11/14/2015 - - Read by: Emmanuel Hernández MD Dictated Date/time: 11/15/15 08:39 Electronically Signed by: Emmanuel Hernández MD 11/15/15 08:40 FINAL REPORT [facility] Spine lumbar series DX Spine lumbar [...] arthrosis of the lower lumbar spine. SL: [id number] 11/14/2015 - - Read by: Emmanuel Hernández MD Dictated Date/time: 11/14/15 13:20 Electronically Signed by: Emmanuel Hernández MD 11/14/15 13:20 FINAL REPORT [facility] Hip 2/3 views uni DX Hip 2/3 views uni DX Study: Right hip, 2 views Clinical Indication: m25.551 pain in right hip Comparison: None FINDINGS: 2 views of the right hip show no acute bony fracture, joint dislocation, or suspicious osseous lesion. Calcified phleboliths in the pelvis are seen. IMPRESSION: No significant abnormality of the right hip. SL: [id number] 11/14/2015 - - Read by: Emmanuel Hernández MD Dictated Date/time: 11/14/15 13:21 Electronically Signed by: Emmanuel Hernández MD 11/14/15 13:21 FINAL REPORT [facility] Breast Complete Uni US Breast Complete Uni US - BREAST COMPLETE UNI US/L ULTRASOUND OF LEFT BREAST AND LEFT AXILLA: 09/25/2015 CLINICAL: Pain. Comparison is made to exams dated: 09/25/2015 mammogram, 11/07/2013 mammogram, 11/01/2012 mammogram, 10/30/2011 mammogram, 10/29/2010 mammogram and 10/29/2009 mammogram - [facility]. Color flow and real-time ultrasound [...] reviewed with the patient. Stephie valdez/:09/25/2015 11:47:32 Engineer Process: Liz Zhang, [facility] This exam was dictated and interpreted by [id number] for [facility]. letter sent: Normal exam Ultrasound BI-RADS: 2 Benign 09/25/2015 - - Read by: Stephie Gutierrez MD Dictated Date/time: 09/25/15 11:47 Electronically Signed by: Stephie Gutierrez MD 09/25/15 11:47 FINAL REPORT [facility] Digital Mammo DX Alexy MA w [...] 10/30/2011 mammogram, 10/29/2010 mammogram, 10/29/2009 mammogram - [facility] and 08/06/2008 mammogram. The tissue [...] time; please see dedicated separate report. Stephie valdez/orber:09/25/2015 11:45:44 Engineer Process: Petra Chatterjee, [facility] This exam was dictated and interpreted by [id number] for [facility]. Mammogram BI-RADS: 0 Indeterminate 09/25/2015 - - Read by: Stephie Gutierrez MD Dictated Date/time: 09/25/15 11:45 Electronically Signed by: Stephie Gutierrez MD 09/25/15 11:45 FINAL REPORT [facility] Bone Density Scan Bone Density Scan [...] Dictated Date/time: 07/09/15 13:21 Electronically Signed by: Emmaunel Hernández MD 07/09/15 13:22 FINAL REPORT [facility] Bone Density Scan Bone Density Scan [...] Emmanuel Hernández MD 03/30/14 10:55 FINAL REPORT [facility] Digital Mammo Screening Alexy MA Digital Mammo Screening Alexy MA - DIGITAL MAMMO SCREENING ALEXY MA BILATERAL DIGITAL SCREENING MAMMOGRAM WITH CAD: 11/07/2013 CLINICAL: Other Screening Mammogram. Current study was evaluated with a Computer Aided Detection (CAD) system. Comparison is made to exams dated: 11/01/2012 mammogram, 10/30/2011 mammogram, 10/29/2010 mammogram and 10/29/2009 mammogram - [facility]. The tissue of both breasts [...] one year is recommended. Stephie valdez/penrad:11/08/2013 10:01:38 Engineer Process: Hermelinda Callejas, [facility] This exam was dictated and interpreted by [id number] at [facility], [place]. letter sent: Normal exam Mammogram BI-RADS: 2 Benign 11/07/2013 - - Read by: Stephie Gutierrez Dictated Date/time: 11/08/13 10:01 Electronically Signed by: Stephie Gutierrez MD 11/08/13 10:01 FINAL REPORT [facility] Vital Signs Vital Sign Value Date [...] Group Temperature Oral (F) 96.9 F 10/28/2017 [facility] Heart Rate 61 02/10/2017 [facility] Respitory Rate 16 02/10/2017 [facility] Systolic (mm Hg) 148 02/10/2017 [facility] Diastolic (mm Hg) 77 02/10/2017 [facility] Temperature Oral (F) 98.1 F 02/10/2017 [facility] Systolic (mm Hg) 127 02/10/2017 [facility] Diastolic (mm Hg) 61 02/10/2017 [facility] Respitory Rate 16 02/10/2017 [facility] Heart Rate 60 02/10/2017 [facility] Temperature Oral (F) 97.9 F 02/10/2017 [facility] Weight 88.636 02/10/2017 [facility] BMI Calculated 38.16 02/10/2017 [facility] Height 152.4 cm 02/10/2017 [facility] Temperature Oral (F) 98.0 F 02/10/2017 [facility] Heart Rate 67 02/10/2017 [facility] Respitory Rate 16 02/10/2017 [facility] Systolic (mm Hg) 124 02/10/2017 [facility] Diastolic (mm Hg) 75 02/10/2017 [facility] Weight 88.636 02/09/2017 [facility] BMI Calculated 38.16 02/09/2017 [facility] Height 152.4 cm 02/09/2017 [facility] Height 152.4 cm 02/07/2017 [facility] BMI Calculated 38.16 02/07/2017 [facility] Weight 88.636 02/07/2017 [facility] Systolic (mm Hg) 163 06/24/2016 [facility] Diastolic (mm Hg) 75 06/24/2016 [facility] Respitory Rate 13 06/24/2016 [facility] Systolic (mm Hg) 155 06/24/2016 [facility] Diastolic (mm Hg) 75 06/24/2016 [facility] Respitory Rate 16 06/24/2016 [facility] Respitory Rate 12 06/24/2016 [facility] Systolic (mm Hg) 127 06/24/2016 [facility] Diastolic (mm Hg) 68 06/24/2016 [facility] Heart Rate 60 06/24/2016 [facility] Temperature Oral (F) 97.7 F 06/22/2016 [facility] Heart Rate 88 06/22/2016 [facility] Weight 92.273 06/22/2016 [facility] BMI Calculated 37.21 06/22/2016 [facility] Height 157.48 cm 06/22/2016 [facility] Encounters Location Location Details Encounter Type Encounter Number Reason For Visit Attending Provider ADM Date DC Date Status Source [facility] Outpatient [id number] ROUTINE SCREENING GOLDY CLARKE 10/30/2011 Active [facility] Outpatient [id number] RUQ PAIN GOLDY CLARKE 06/02/2012 Active [facility] Outpatient [id number] SCREENING GOLDY CLARKE 11/01/2012 11/01/2012 Active [facility] Outpatient [id number] SCREENING MAMMOGRAM AARON MERLOS 11/07/2013 Active [facility] Outpatient [id number] Aaron Merlos 11/07/2013 11/08/2013 [facility] Outpatient [id number] Aaron Merlos 03/30/2014 03/31/2014 [facility] Outpatient [id number] AARON MERLOS 07/01/2015 Active [facility] Outpatient [id number] Aaron Merlos 07/09/2015 07/10/2015 [facility] Outpatient [id number] Aaron Merlos 09/25/2015 09/26/2015 [facility] Outpatient [id number] AARON MERLOS 10/24/2015 Active [facility] Outpatient [id number] Aaron Merlos 11/14/2015 11/15/2015 [facility] Outpatient [id number] AARON MERLOS 11/29/2015 [facility] [id number] AARON MERLOS 03/24/2016 Active [facility] Bedded Outpatient [id number] Momo KinneyYumiko 06/24/2016 06/24/2016 [facility] Outpatient [id number] MICHELLE TERESA 07/24/2016 Active [facility] Outpatient [id number] AARON MERLOS 07/24/2016 Active [facility] Outpatient [id number] AARON MERLOS 10/30/2016 Active [facility] Outpatient [id number] Aaron Merlos 12/08/2016 12/09/2016 [facility] Observation [id number] Jose Shawmarysol 02/07/2017 02/10/2017 [facility] Outpatient [id number] AARON MERLOS 02/23/2017 Active [facility] Outpatient [id number] AARON MERLOS 03/04/2017 Active [facility] Outpatient [id number] AARON MERLOS 06/24/2017 Active [facility] Phone Message [id number] 08/19/2017 08/21/2017 [facility] Primary Care [facility] Phone Message [id number] 10/01/2017 10/03/2017 [facility] Primary Care [facility] Phone Message [id number] 10/01/2017 10/03/2017 [facility] Outpatient [id number] AARON MERLOS 10/13/2017 Active [facility] [id number] AARON MERLOS 10/28/2017 Active [facility] Outpatient [id number] Aaron Merlos 10/28/2017 10/29/2017 [facility] Outpatient [id number] Aaron Merlos 12/08/2017 12/09/2017 [facility] Phone Message [id number] 12/30/2017 01/01/2018 [facility] Out[facility] [id number] AARON MERLOS 02/25/2018 [facility] [id number] Aaron Merlos 02/25/2018 02/26/2018 [facility] [id number] AARON MERLOS 08/04/2018 Active [facility] Outpatient [id number] AARON MERLOS 08/12/2018 Active [facility] Outpatient [id number] AARON MERLOS 08/26/2018 Active [facility] Outpatient [id number] AARON MERLOS 12/26/2018 Active [facility] Procedures Procedure Code Date Perfomer Comments Source Screening mammography<sup>1</sup> [id number] 12/08/2017 IMPRESSION: BENIGN RECOMMENDATION:There is no mammographic evidence of malignancy. A 1 year screening mammogram is recommended.(12/09/2018) [facility] Screening mammography<sup>1</sup> [id number] 12/08/2017 IMPRESSION: BENIGN RECOMMENDATION:There is no mammographic evidence of malignancy. A 1 year screening mammogram is recommended.(12/09/2018) [facility] Influenza vaccination [id number] 06/24/2017 [facility] Influenza vaccination [id number] 06/24/2017 [facility] Laparoscopic cholecystectomy [id number] 02/08/2017 [facility] Laparoscopic cholecystectomy [id number] 02/08/2017 [facility] Pneumococcal vaccination<sup>2</sup> [id number] 02/08/2017 Prevnar- 13 [facility] Pneumococcal vaccination<sup>2</sup> [id number] 02/08/2017 Prevnar- 13 [facility] Bone density scan<sup>2</sup> [id number] 12/08/2016 osteopenia of LS [facility] Screening mammography<sup>3</sup> [id number] 12/08/2016 IMPRESSION: BENIGN There is no mammographic evidence of malignancy. A 1 year screening mammogram is recommended. [facility] Bone density scan<sup>1</sup> [id number] 12/08/2016 osteopenia of LS [facility] Screening mammography<sup>2</sup> [id number] 12/08/2016 IMPRESSION: BENIGN There is no mammographic evidence of malignancy. A 1 year screening mammogram is recommended. [facility] Bone density scan<sup>3</sup> [id number] 12/08/2016 osteopenia of LS [facility] Screening mammography<sup>4</sup> [id number] 12/08/2016 IMPRESSION: BENIGN There is no mammographic evidence of malignancy. A 1 year screening mammogram is recommended. [facility] Bone density scan<sup>3</sup> [id number] 12/08/2016 osteopenia of LS [facility] Screening mammography<sup>4</sup> [id number] 12/08/2016 IMPRESSION: BENIGN There is no mammographic evidence of malignancy. A 1 year screening mammogram is recommended. [facility] Diabetic retinal eye exam [id number] 09/20/2016 [facility] Diabetic retinal eye exam [id number] 09/20/2016 [facility] Colonoscopy<sup>4</sup> [id number] 06/24/2016 diverticulosis, polyp in rectosigmoid colon [facility] Colonoscopy<sup>3</sup> [id number] 06/24/2016 diverticulosis, polyp in rectosigmoid colon [facility] Colonoscopy<sup>5</sup> [id number] 06/24/2016 diverticulosis, polyp in rectosigmoid colon [facility] Colonoscopy<sup>5</sup> [id number] 06/24/2016 diverticulosis, polyp in rectosigmoid colon [facility] Pneumococcal vaccination<sup>6</sup> [id number] 07/16/2012 Pneumovax [facility] Pneumococcal vaccination<sup>6</sup> [id number] 07/16/2012 Pneumovax [facility] Colonoscopy<sup>5</sup> [id number] 03/15/2011 hemorrhoids, diverticulosis, repeat in 5 years [facility] Colonoscopy<sup>4</sup> [id number] 03/15/2011 hemorrhoids, diverticulosis, repeat in 5 years [facility] Colonoscopy<sup>1</sup> [id number] 03/15/2011 hemorrhoids, diverticulosis, repeat in 5 years [facility] Colonoscopy<sup>7</sup> [id number] 03/15/2011 hemorrhoids, diverticulosis, repeat in 5 years [facility] Colonoscopy [id number] 03/15/2011 [facility] Colonoscopy<sup>7</sup> [id number] 03/15/2011 hemorrhoids, diverticulosis, repeat in 5 years [facility] Operation [id number] [facility]
[2018-09-06 14:15] VITALS: BP 115/80
== END | disposition home or self-care (01) ==
LOC: OR 11:03
PROVIDERS: ATTEND Ophthalmology
DX: H25.11 Age-related nuclear cataract, right eye (principal); E11.22 Type 2 diabetes mellitus with diabetic chronic kidney disease; I12.9 Hypertensive chronic kidney disease with stage 1 through stage 4 chronic kidney disease, or unspecified chronic kidney disease; N18.3 Chronic kidney disease, stage 3 (moderate); K21.9 Gastro-esophageal reflux disease without esophagitis; M47.896 Other spondylosis, lumbar region; I73.9 Peripheral vascular disease, unspecified; K64.9 Unspecified hemorrhoids; M06.9 Rheumatoid arthritis, unspecified; M17.10 Unilateral primary osteoarthritis, unspecified knee; M81.0 Age-related osteoporosis without current pathological fracture; H91.93 Unspecified hearing loss, bilateral; L30.9 Dermatitis, unspecified; M32.9 Systemic lupus erythematosus, unspecified; E55.9 Vitamin D deficiency, unspecified; Z79.02 Long term (current) use of antithrombotics/antiplatelets; Z88.8 Allergy status to other drugs, medicaments and biological substances
CPT/HCPCS: 66984; J2250; V2632